=== PATIENT | female | born 1965 | race Caucasian/White ===

== ENCOUNTER → 2017-01-29 | Outpatient (CLI) | payer BC ==
[~2017-01-29] MED LIST: CLOB-65 TOP; LEVO100T7 PO; LEVO112T4 PO; LINA1CAP2 PO; RMCI IV
--- NOTE | 2017-01-29 11:26 | DIAGNOSTIC IMAGING REPORT ---
CHEST 2 VIEWS ROUTINE CLINICAL HISTORY: Fever. Cough. COMPARISON STUDY: Chest radiograph April 17, 2016. FINDINGS: There are several healed right rib fractures. Lung volumes are normal. There is no pneumothorax or pleural effusion. Cardiac size is normal. Mediastinal contours are normal. There is no evidence of pulmonary edema. IMPRESSION: No acute cardiopulmonary findings. Electronically signed by: Ron Tilley M.D. 01/29/2017 11:25 AM Dictated Date/Time: 01/29/2017 11:24 AM
== END | disposition home or self-care (01) ==
LOC: C.RAD1850 11:05
PROVIDERS: ATTEND Family Medicine
DX: R50.9 Fever, unspecified (principal); R05 Cough

== ENCOUNTER 2017-05-29 23:16 | Emergency (ER) | payer BC ==
[~2017-05-29] VITALS: Ht 182.9 cm; Wt 115.8 kg
[~2017-05-29 23:16] MED LIST changes: -LEVO112T4 PO
[2017-05-29 23:23] VITALS: TEMP 36.4; Ht 182.9 cm; Wt 115.8 kg
[2017-05-29 23:47] LABS: BASO % 0.2 %; BASO ABS # 0.01 K/uL (0-0.2); COMPLETE YES; EOS % 2.9 %; HEMATOCRIT 43.1 % (37-47); IG% 0.2 %; LYMPH ABS # 2.36 K/uL (1.2-3.4); MEAN CELL VOLUME 86.5 fL (80-100); MEAN CORPUSCULAR HEMOGLOBIN 28.7 pg (25-34); MEAN CORPUSCULAR HGB CONC 33.2 g/dl (32-36); MEAN PLATELET VOLUME 9.7 fL (7.4-10.4); MONO % 10.2 %; NEUT % 43.5 %; PLATELET COUNT 221 K/uL (130-400); RED BLOOD COUNT 4.98 M/uL (4.2-5.4); WHITE BLOOD COUNT 5.49 K/uL (4.8-10.8)
[2017-05-30 00:02] LABS: POINT OF CARE TROPONIN I < 0.030 ng/ml (0-0.045)
[2017-05-30 00:14] LABS: BUN/CREATININE RATIO 14.5 (10-20); CALCIUM 8.9 mg/dl (8.5-10.1); CKMB/CK RATIO 0.7 (0-3.0); POTASSIUM 3.7 mmol/L (3.5-5.1)
[2017-05-30] MEDS ORDERED: LEVO112T4 PO (00:19)
[2017-05-30 00:46] VITALS: PULSE 64; O2SAT 96
[2017-05-30 01:01] VITALS: BP 167/110
--- NOTE | 2017-05-30 01:57 | EMERGENCY ROOM VISIT NOTE ---
History Report prepared by Tamara: Tata Molina Under the Supervision of: Dr. Liu Gomez M.D. First contact with patient: 23:25 Chief Complaint: CHEST PAIN Stated Complaint: CHEST PAIN, ARM PAIN, TINGLING IN LEFT HAND History of Present Illness The patient is a 51 year old female who presents to the Emergency Room with complaints of intermittent left-sided chest pain that started 3 weeks ago. She rates her discomfort as a 6/10 in severity. The pain radiates into her left shoulder and left arm. The patient states that the chest pain is worse when she puts her left arm down. She states that after putting her left arm down the pain in her chest increases. She describes the pain as tightness or pressure. The patient states that she also experiences tingling in her left hand after she puts her arm down. She states that the left arm pain and numbness only started to be associated with the chest pain over the last 1.5-2 weeks. The pain is unchanged with inspiration. She took Tylenol earlier tonight without any relief. She is also experiencing occasional diaphoresis. Pt denies LOC, headache, fevers, chills, visual changes, neck pain, personal history or family history of aneurysm or pulmonary embolism, breathing difficulties, leg swelling , coagulation abnormalities, prolonged travel, recent surgery or immobilization , nausea, vomiting, abdominal pain, melena, hematochezia, urinary symptoms, weakness, lymphadenopathy, rash, or other complaints. The patient states that she experienced back pain yesterday, but she states that she was standing for a couple hours during the day which is hard for her secondary to her ankylosing spondylosis. The patient's adds that the patient received an infusion of Remicade last week for that at the cancer center. The patient had a treadmill stress test done a few weeks ago but had to stop secondary to hypertension. She had a echocardiogram done after that and the electronics tester told her that it was unremarkable. The patient has seen her PCP, Dr. Chairez, since being evaluated by the electronics tester and she considered starting the patient on medication for hypertension but she was hesitant because the patient' s blood pressures have been within normal limits when she evaluates her. Dr. Mccloud told the patient it would be best to get a second cardiology opinion before she starts her on medication for hypertension. Source of History: patient, spouse/significant other () Onset: 3 weeks ago Position: chest (left) Quality: pressure, other (tightness) Timing: intermittent Modifying Factors (Worsening): other (putting left arm down) Modifying Factors (Relieving): other (None) Associated Symptoms: + diaphoresis (occasionally) Note: left shoulder pain, left arm pain Review of Systems See HPI for pertinent positives and negatives. A total of ten systems were reviewed and were otherwise negative. Past Medical & Surgical Medical Problems: (1) Ankylosing spondylitis (2) HTN (hypertension) Surgical Problems: (1) H/O: hysterectomy Family History Heart disease Hypertension Social History Smoking Status: Never Smoker Marital Status: Housing Status: lives with family Occupation Status: employed Current/Historical Medications Scheduled Infliximab (Remicade), 1 DOSE IV Q8WK Levothyroxine Sodium (Levothyroxine Sodium), 112 MCG PO DAILY Allergies Coded Allergies: Aspirin (Verified Allergy, Intermediate, HIVES, 04/17/16) NSAIDs (Verified Allergy, Intermediate, HIVES, 04/17/16) Sulfa Antibiotics (Verified Allergy, Intermediate, Rash / Headache, ) Sulfasalazine (Verified Allergy, Unknown, ?, 04/17/16) Celecoxib (Verified Adverse Reaction, Mild, HEADACHE, 04/17/16) Physical Exam Vital Signs Date Time Temp Pulse Resp B/P (MAP) Pulse Ox O2 Delivery O2 Flow Rate FiO2 05/30/17 01:01 167/110 05/30/17 00:46 64 16 96 Room Air 05/30/17 00:31 167/115 05/30/17 00:16 67 14 94 Room Air 05/30/17 00:01 156/111 05/29/17 23:48 68 05/29/17 23:46 67 14 163/106 05/29/17 23:44 160/101 05/29/17 23:44 Room Air 05/29/17 23:23 36.4 72 16 193/111 96 Room Air Physical Exam GENERAL: Awake, alert, well-appearing, in no distress HENT: Normocephalic, atraumatic. Oropharynx unremarkable. EYES: Normal conjunctiva. Sclera non-icteric. NECK: Supple. No nuchal rigidity. FROM. No JVD. RESPIRATORY: Clear to auscultation. CARDIAC: Regular rate, normal rhythm. Extremities warm and well perfused. Pulses equal. ABDOMEN: Soft, non-distended. No tenderness to palpation. No rebound or guarding. No masses. RECTAL: Deferred. MUSCULOSKELETAL: Chest examination reveals no tenderness. The back is symmetrical on inspection without obvious abnormality. There is no CVA tenderness to palpation. No joint edema. LOWER EXTREMITIES: Calves are equal size bilaterally and non-tender. No edema. No discoloration. NEURO: Normal sensorium. No sensory or motor deficits noted. SKIN: No rash or jaundice noted. Medical Decision & Procedures ER Provider Diagnostic Interpretation: Radiology results as stated below per my interpretation: Chest x-ray. Findings: A chest x-ray was performed and revealed no pneumothorax, effusion, infiltrate, pulmonary edema, free air under the diaphragm, or wide mediastinum. Laboratory Results 05/29/17 23:38 Red Blood Count 4.98, Mean Corpuscular Volume 86.5, Mean Corpuscular Hemoglobin 28.7, Mean Corpuscular Hemoglobin Concent 33.2, Mean Platelet Volume 9.7, Neutrophils (%) (Auto) 43.5, Lymphocytes (%) (Auto) 43.0, Monocytes (%) (Auto) 10.2, Eosinophils (%) (Auto) 2.9, Basophils (%) (Auto) 0.2, Neutrophils # (Auto ) 2.39, Lymphocytes # (Auto) 2.36, Monocytes # (Auto) 0.56, Eosinophils # (Auto ) 0.16, Basophils # (Auto) 0.01 05/29/17 23:38 Test 05/29/17 23:38 05/29/17 23:42 05/30/17 01:28 White Blood Count 5.49 K/uL (4.8-10.8) Red Blood Count 4.98 M/uL (4.2-5.4) Hemoglobin 14.3 g/dL (12.0-16.0) Hematocrit 43.1 % (37-47) Mean Corpuscular Volume 86.5 fL (80-100) Mean Corpuscular Hemoglobin 28.7 pg (25-34) Mean Corpuscular Hemoglobin Concent 33.2 g/dl (32-36) Platelet Count 221 K/uL (130-400) Mean Platelet Volume 9.7 fL (7.4-10.4) Neutrophils (%) (Auto) 43.5 % Lymphocytes (%) (Auto) 43.0 % Monocytes (%) (Auto) 10.2 % Eosinophils (%) (Auto) 2.9 % Basophils (%) (Auto) 0.2 % Neutrophils # (Auto) 2.39 K/uL (1.4-6.5) Lymphocytes # (Auto) 2.36 K/uL (1.2-3.4) Monocytes # (Auto) 0.56 K/uL (0.11-0.59) Eosinophils # (Auto) 0.16 K/uL (0-0.5) Basophils # (Auto) 0.01 K/uL (0-0.2) RDW Standard Deviation 43.0 fL (36.4-46.3) RDW Coefficient of Variation 13.6 % (11.5-14.5) Immature Granulocyte % (Auto) 0.2 % Immature Granulocyte # (Auto) 0.01 K/uL (0.00-0.02) Anion Gap 5.0 mmol/L (3-11) Est Creatinine Clear Calc Drug Dose 93.7 ml/min Estimated GFR () 75.0 Estimated GFR (Non- 64.7 BUN/Creatinine Ratio 14.5 (10-20) Calcium Level 8.9 mg/dl (8.5-10.1) Total Bilirubin 0.3 mg/dl (0.2-1) Direct Bilirubin 0.1 mg/dl (0-0.2) Aspartate Amino Transf (AST/SGOT) 30 U/L (15-37) Alanine Aminotransferase (ALT/SGPT) 52 U/L (12-78) Alkaline Phosphatase 71 U/L (45-117) Total Creatine Kinase 94 U/L (26-192) Creatine Kinase MB 0.7 ng/ml (0.5-3.6) Creatine Kinase MB Ratio 0.7 (0-3.0) Total Protein 7.1 gm/dl (6.4-8.2) Albumin 3.8 gm/dl (3.4-5.0) Lipase 274 U/L (73-393) Chemistry Specimen Hemolysis Bedside D-Dimer 102 ng/mlFEU (0-450) Bedside Troponin I < 0.030 ng/ml (0-0.045) Laboratory results reviewed by me ECG Indication: chest pain Rate (beats per minute): 71 Rhythm: normal sinus Findings: no acute ischemic change, no ectopy, other (no pericarditis) ED Course 2329: The patient was evaluated in room A11. A complete history and physical exam was performed. 0106: I reevaluated the patient. Discussed results and discharge instructions: she verbalized understanding and agreement. She feels comfortable going home but we are going to repeat a troponin. She refused receiving any medication for pain. The patient is ready for discharge. Medical Decision Medication Reconciliation: I attest that I have personally reviewed the patient' s current medication list Blood pressure screening: Patient was found to have an elevated blood pressure and was referred to their primary doctor for recheck and further treatment. Triage Nursing notes reviewed. The patient's presentation and history were concerning for Chest and arm pain. Etiologies such as musculoskeletal, neurologic, cardiac ischemia, aortic dissection, pulmonary embolism, pneumonia, pneumothorax, infections, gastrointestinal, as well as others were entertained. The patient was evaluated. Clinically she was doing very well. She has had pain for over 3 weeks. The patient has no neurologic deficits. She has strong pulses that are equal. She had a partial stress test by her report that was stopped because of her high blood pressure. She did not have any increasing chest pain by her report. The patient states that she had an echo that was unremarkable. She was just tired of the symptoms and came to emergency department this evening for further evaluation. The patient had an unremarkable CBC, chemistry panel, LFTs and lipase. The patient d-dimer is negative. First troponin was negative. ECG was nonischemic. The patient had equal blood pressures in her upper extremities although she was hypertensive. Without intervention her blood pressure improved but she was still hypertensive. Using shared decision making the patient myself and her felt very comfortable with the results of the initial laboratory, radiographic, and ECG testing. I did suggest a repeat troponin 2 verify the first and the patient and felt very comfortable with this. The patient would prefer to go home at this point and I think this is reasonable as she has had pain for an extended period without any abdomen on these and her blood work or ECG. Repeat troponin was unchanged. The patient will contact her primary physician in the morning and set up additional follow-up testing as she has planned. If she worsens in any way she will come back to the emergency department. The exact etiology of her pains have not obvious although a musculoskeletal source seems to be more likely but further testing will be necessary. By the evaluation outlined above other emergent etiologies such as those listed in the differential, as well as others, were deemed relatively unlikely. The patient was educated about the findings as listed above. All questions were answered and the patient was pleased with the treatment. Return instructions were outlined and the patient was discharged in stable condition. The patient was referred to her PCP tomorrow for follow-up for a recheck of the current condition. Impression Primary Impression: Left sided chest pain Additional Impression: Left arm pain Scribe Attestation The scribe's documentation has been prepared under my direction and personally reviewed by me in its entirety. I confirm that the note above accurately reflects all work, treatment, procedures, and medical decision making performed by me. Departure Information Dispostion Home / Self-Care Referrals Mena Chairez D.O. (PCP) Forms HOME CARE DOCUMENTATION FORM, IMPORTANT VISIT INFORMATION Patient Instructions My [facility] Additional Instructions CHEST PAIN INSTRUCTIONS: Acetaminophen(Tylenol) may be used for fever or pain. Use 1000mg every six hours as needed. Avoid using more than 4000mg in a 24 hour period. Rest and drink plenty of fluids as tolerated. Continue current medications. Avoid strenuous activities and anything that worsens your pain. Resume normal activities once your symptoms resolve. Return to the ER immediately for worsening or persistent chest pain, abdominal pain, vomiting, fevers, chest pains, difficulty breathing, worsening of your condition, or as needed. Follow up with your primary physician tomorrow for a recheck of your current condition. Problem Qualifiers
--- NOTE | 2017-05-30 07:22 | DIAGNOSTIC IMAGING REPORT ---
SINGLE VIEW CHEST CLINICAL HISTORY: Atypical chest pain. FINDINGS: An AP, portable, upright chest radiograph is compared to study dated 01/29/2017 and correlated with chest CT dated 02/24/2015. The examination is degraded by portable technique, large body habitus, and patient rotation. The cardiomediastinal silhouette is unremarkable. The lungs and pleural spaces are clear. No pneumothorax is seen. The skeletal structures are osteopenic. There are healed right-sided rib fractures. IMPRESSION: No active disease in the chest. Electronically signed by: Michael Cruz M.D. 05/30/2017 7:20 AM Dictated Date/Time: 05/30/2017 7:20 AM
== END 2017-05-30 02:00 | disposition home or self-care (01) ==
LOC: C.EDB 23:18 → C.EDA 05-30 02:00
DX: R07.9 Chest pain, unspecified (principal); M79.602 Pain in left arm; R20.0 Anesthesia of skin; M45.9 Ankylosing spondylitis of unspecified sites in spine; I10 Essential (primary) hypertension; Z90.710 Acquired absence of both cervix and uterus; Z82.49 Family history of ischemic heart disease and other diseases of the circulatory system

== ENCOUNTER → 2017-06-05 | Outpatient (CLI) | payer BC ==
[~2017-06-05] MED LIST changes: -CLOB-65 TOP; -LEVO100T7 PO; +LEVO112T4 PO; -LINA1CAP2 PO
--- NOTE | 2017-06-05 22:04 | DIAGNOSTIC IMAGING REPORT ---
RIGHT ANKLE MIN 3 VIEWS ROUTINE CLINICAL HISTORY: Right ankle pain following fall. COMPARISON: None FINDINGS: Note is made of moderate lateral ankle soft tissue swelling. There is an age indeterminate nondisplaced fibular tip fracture. Talar dome is intact. No additional fractures are identified. There is no ankle mortise widening. IMPRESSION: 1. Age indeterminate nondisplaced fibular tip fracture. 2. Moderate lateral ankle soft tissue swelling. Electronically signed by: Ron Tilley M.D. 06/05/2017 10:02 PM Dictated Date/Time: 06/05/2017 10:00 PM
== END | disposition home or self-care (01) ==
LOC: C.RAD 21:16
PROVIDERS: ATTEND Family Medicine
DX: M25.571 Pain in right ankle and joints of right foot (principal)

== ENCOUNTER → 2017-07-03 | Outpatient (CLI) | payer BC ==
--- NOTE | 2017-07-03 13:41 | DIAGNOSTIC IMAGING REPORT ---
RIGHT ANKLE MIN 3 VIEWS CLINICAL HISTORY: Distal fibular fracture COMPARISON: 06/05/2017 DISCUSSION: There is a crescent shaped bony density at the level of the distal fibular tip, consistent with an avulsion. This remain similar in appearance to the prior study. There is no evidence of radiographic union. No tibial fractures are visualized. The ankle mortise appears intact. There is a plantar calcaneal spur. IMPRESSION: Age-indeterminate fibular tip fracture, unchanged in appearance. Electronically signed by: Homero De Leon M.D. 07/03/2017 1:40 PM Dictated Date/Time: 07/03/2017 1:39 PM
== END | disposition home or self-care (01) ==
LOC: C.RDSM 08:12
PROVIDERS: ATTEND Physician Assistant
DX: S82.874A Nondisplaced pilon fracture of right tibia, initial encounter for closed fracture (principal); S82.831A Other fracture of upper and lower end of right fibula, initial encounter for closed fracture; X58.XXXA Exposure to other specified factors, initial encounter

== ENCOUNTER → 2017-08-02 | Outpatient (CLI) | payer BC ==
--- NOTE | 2017-08-02 13:15 | DIAGNOSTIC IMAGING REPORT ---
RIGHT ANKLE MIN 3 VIEWS CLINICAL HISTORY: 51 years-old Female presenting with RIGHT ANKLE FX Right. TECHNIQUE: Frontal, mortise, and lateral views of the right ankle were obtained. COMPARISON: 07/03/2017. FINDINGS: Well-defined sclerotic margins of the transversely oriented fracture at the inferior pole of the lateral malleolus with nonunion. This is consistent with a chronic avulsion injury. No acute fracture. Ankle mortise intact. Bone spur noted at the inferior calcaneus. No other significant degenerative change. IMPRESSION: No acute osseous injury. Chronic avulsion fracture at the inferior pole of the lateral malleolus. Electronically signed by: Alcon Saba M.D. 08/02/2017 1:13 PM Dictated Date/Time: 08/02/2017 1:12 PM
== END | disposition home or self-care (01) ==
LOC: C.RDSM 08:58
PROVIDERS: ATTEND Physician Assistant
DX: S82.61XD Displaced fracture of lateral malleolus of right fibula, subsequent encounter for closed fracture with routine healing (principal); X58.XXXD Exposure to other specified factors, subsequent encounter

== ENCOUNTER → 2017-08-27 | Outpatient (CLI) | payer BC ==
--- NOTE | 2017-08-27 14:42 | MAMMOGRAPHY REPORT ---
BILATERAL DIGITAL DIAGNOSTIC MAMMOGRAM TOMOSYNTHESIS WITH CAD AND TARGETED BILATERAL ULTRASOUND: 08/27 CLINICAL HISTORY: 51-year-old woman presents with 2 areas of focal pain in the left breast, and also reported right sided nipple discharge. The patient reports the pain as a soreness, worse with palpat ion no palpable mass or skin erythema. No left-sided nipple discharge. The right nipple discharge i s clear, spontaneous and one drop at a time which has been ongoing since cessation of after the patient's child was born approximately 10 years ago. TECHNIQUE: Bilateral CC and MLO 2-D and tomosynthesis images were obtained. Current study was also e valuated with a Computer Aided Detection (CAD) system. COMPARISON: Comparison is made to exams dated: 03/23/2008 and 03/23/2008. BREAST COMPOSITION: There are scattered areas of fibroglandular density in both breasts. FINDINGS: 2 square-shaped pain markers overlie the left breast in the upper outer approximate 2:00 a xis, and in the lower inner approximate 7:00 axis. There is a stable benign intramammary lymph node in the upper outer quadrant of the left breast, somewhat near the pain marker. However, there is no evidence of a new suspicious mass, architectural distortion, asymmetry or suspicious microcalcificati ons in the left breast. There is a grouping of approximately 2 to 3 punctate microcalcifications in the upper outer posterior right breast, with associated 4 mm nodular asymmetry, not clearly seen on the prior 2007 mammograms. Further evaluation with ultrasound was performed to assess for a possible mass with calcification. No other suspicious mass, focal area of architectural distortion, asymmetry or other suspicious grou ping or clustered microcalcifications is seen in the right breast. No calcifications are seen in the subareolar breast on the spot magnification views to explain the nipple discharge. Targeted ultrasound was performed in the areas of pain in the left 2:00 breast, 7 cm from the nipple, and the left 7:00 breast, 8 cm from the nipple, pointed out by the patient. Sonographically normal tissue is seen without a discrete solid or cystic mass. Additional scanning was performed in the retroareolar and subareolar/periareolar right breast. There is no evidence of focal duct ectasia or suspicious intraductal mass. Additional scanning performed throughout the right upper outer quadrant demonstrates a lobulated anechoic cyst in the 9:00 axis, 6 cm from the nipple, measuring 6.7 x 2.4 x 4.1 mm, and a round hypoechoic solid versus cystic mass in the 8:30 axis, 6 cm from the nipple, measuring 2.5 x 2.5 x 2.7 mm. This is smaller than the nodular asymmetry with calcification seen mammographically and is thought to be incidentally identified. Nev ertheless it is indeterminate warranting further evaluation with an ultrasound guided core biopsy. IMPRESSION: ACR BI-RADS CATEGORY 4: SUSPICIOUS, TARGETED ULTRASOUND ACR BI-RADS CATEGORY 4: SUSPICIO US 1. There is no suspicious mammographic or targeted sonographic abnormalities in the left breast to e xplain the focal areas of pain pointed out by the patient. Conservative management options of minera l supplements, evening primrose oil, heat and NSAIDs were discussed with the patient. Clinical follo w-up is also recommended. 2. There are 2-3 punctate microcalcifications with associated 4.5 mm nodular asymmetry in the upper outer posterior right breast, without definite sonographic correlate. This was not definitely identi fied on the prior 2007 mammograms and is indeterminate. Definitive characterization with a stereotac tic guided biopsy is recommended. Prior to stereotactic biopsy, formal spot magnification view shoul d also be obtained. 3. Incidentally identified 2.5 mm hypoechoic solid versus cystic mass in the 8:30 right breast, 6 cm from the nipple identified on ultrasound. This is also indeterminate, warranting definitive charact erization with an ultrasound guided core needle biopsy. 4. No suspicious mammographic or sonographic finding to explain the intermittent spontaneous clear r ight nipple discharge. Cytology of the fluid may be useful and continued clinical monitoring is virgilio mmended, although this finding has a lower suspicion given the chronic nature. These results and recommendations were discussed with the patient and her at the time of the exam. She tentatively scheduled the right breast biopsies prior to leaving our department. Approximately 10% of breast cancers are not detected with mammography. A negative mammographic report should not delay biopsy if a clinically suggestive mass is present. Connie Feliz M.D. ay/:08/27/2017 12:17:37 Tool Operator: Christianne Beck, [facility] letter sent: Abnormal 4/5 BI-RADS Code: ACR BI-RADS Category 4: Suspicious Ultrasound BI-RADS: ACR BI-RADS Category 4: Suspici ous
== END | disposition home or self-care (01) ==
LOC: C.MAMM 09:41
PROVIDERS: ATTEND Family Medicine
DX: N64.4 Mastodynia (principal); R92.0 Mammographic microcalcification found on diagnostic imaging of breast; N63 Unspecified lump in breast

== ENCOUNTER → 2017-09-17 | Outpatient (CLI) | payer BC ==
--- NOTE | 2017-09-17 10:43 | Discharge Instructions ---
Discharge Instructions Procedure Procedure Date: Sep 17, 2017. Reason for visit: Right Calcs, Right Mass. Discharge Discharge Date: Sep 17, 2017. Discharge Diagnosis: post right breast stereotactic guided biopsy and ultrasound guided core biopsy Instructions Activity Recommendations: Additional Limitations (see below) Return to School/Work: no limitations Recommended Home Diet: No Limitations Provider Instructions: ACTIVITY RECOMMENDATIONS: * No lifting, pushing, pulling or exercising the affected side for three days. RETURN TO SCHOOL/WORK: * You may return to work/school after the procedure, but do not perform any strenuous activities for 24 to 48 hours. MEDICATIONS: * Tylenol (two 325 mg) every four to six hours if needed for mild pain (if not allergic to Tylenol). DIET: * Resume previous diet. SPECIAL CARE INSTRUCTIONS: * Keep biopsy site dry for 24 hours. May shower after 24 hours, but do not soak (bathe) incision. * May remove Tegaderm (plastic patch) tomorrow AFTER showering. * Leave the steri-strips on for one week. Allow the steri-strips to fall off by themselves. If not off after one week, you may remove them. You may place a Bandaid crosswise over the strips, if desired. * Apply ice 10 minutes on and 10 minutes off as needed. * Wear a bra at bedtime to sleep more comfortably for 2-3 days. * Your referring physician should have the results after approximately 5 to 7 business days. * Call for unusual bleeding, fever, drainage, etc or if you have any questions call [phone] during normal business hours or after hours call Dr Feliz, . FOLLOW UP VISIT: Follow-up with Referring Physician as scheduled. Allergies Coded Allergies: Aspirin (Verified Allergy, Intermediate, HIVES, 04/17/16) NSAIDs (Verified Allergy, Intermediate, HIVES, 04/17/16) Sulfa Antibiotics (Verified Allergy, Intermediate, Rash / Headache, ) Sulfasalazine (Verified Allergy, Unknown, ?, 04/17/16) Celecoxib (Verified Adverse Reaction, Mild, HEADACHE, 04/17/16) Hillary Slaas Recommendations: Call your doctor if: * Temperature above 101 degrees * Pain not relieved by pain medicine ordered * There is increased drainage or redness from any incision * You have any unanswered questions or concerns. Your Doctors Instructions noted above were prepared by provider Connie Feliz. Patient Signature Section: Patient Instructions Signature Page Lesley Suárez Patient (or Guardian) Signature/Date: I have read and understand the instructions given to me by my caregivers. Caregiver/RN/Doctor Signature/Date: The above-named patient and/or guardian has received patient instructions on this date. + Original Patient Signature Page (only) stays with chart. Please make copy for patient.
--- NOTE | 2017-09-17 15:21 | MAMMOGRAPHY REPORT ---
ULTRASOUND GUIDED BIOPSY RIGHT BREAST: 09/17/2017 CLINICAL HISTORY: 51-year-old woman presents for ultrasound-guided core biopsy of an indeterminate so lid versus cystic 2.7 mm mass in the 8:30 right breast, 6 in meters from the nipple. A stereotactic biopsy was performed during the same appointment for a small grouping of punctate microcalcifications in the upper outer posterior right breast. COMPARISON: Comparison is made to exams dated: 08/27/2017 ultrasound, 08/27/2017 mammogram - [facility], and 03/23/2008. PATIENT CONSENT: The procedure, risks and benefits were discussed with the patient and informed conse nt was obtained both verbally and in writing. Specific risks to this procedure include: bleeding, in fection, puncture of adjacent structure, nontarget biopsy, sampling error, pain, metal allergy and me dication reaction. PROCEDURE DESCRIPTION: A time out was performed and the right breast was agreed as the site of biopsy . The skin was prepped and draped in the usual sterile fashion. The solid versus cystic 2.7 mm mass i n the 8:30 right breast was chosen as the target for biopsy. Subcutaneous and intraparenchymal 1% buf fered lidocaine, with and without epinephrine, was administered as local anesthesia. A skin incision was made. Through the incision, 4 samples were taken with a 14 gauge Achieve biopsy device. The mas s decreased in size after each sample. A ribbon shaped metallic marker was placed at the biopsy site . Hemostasis was achieved after manual compression. The patient tolerated the procedure well and ther e was no immediate complication. The samples were sent to the pathology department in an appropriate ly labeled container. Postprocedure right CC and ML views were obtained. A new dumbbell-shaped metallic biopsy marker and no significant hematoma is seen in the upper outer posterior right breast denoting the site of stereo tactic biopsy. A ribbon-shaped biopsy marker clip and no significant hematoma is seen in the 8:30 mi ddle to anterior right breast at the site of the biopsied indeterminate solid versus cystic 2.7 mm ma ss. IMPRESSION: ULTRASOUND GUIDED BIOPSY 1. Status post ultrasound-guided core biopsy of an indeterminate 2.7 mm hypoechoic mass in the 8:30 right breast, with ribbon shaped biopsy marker placed at the site. 2. A stereotactic biopsy was performed in the upper outer posterior right breast during the same klaus ointment and please refer to a separate report for full detail. 3. Clinical follow-up is again recommended for the right sided nipple discharge without any definite imaging abnormality to explain the symptom. Cytology of the fluid may be useful. 4. Clinical follow-up is also recommended for left-sided breast pain. The patient will receive notification of the biopsy results from her referring physician. Connie Feliz M.D. ay/:09/17/2017 12:02:29 E Commerce Specialist: Priyank DE)(Marissa), [facility] [address]
--- NOTE | 2017-09-17 15:21 | MAMMOGRAPHY REPORT ---
STEREOTACTIC GUIDED BIOPSY RIGHT BREAST: 09/17/2017 CLINICAL HISTORY: Indeterminate loose grouping of punctate microcalcifications in the upper outer pos terior right breast. Patient presents for stereotactic biopsy. COMPARISON: Comparison is made to exams dated: 08/27/2017 ultrasound, 08/27/2017 mammogram - [facility], 03/23/2008, and 03/23/2008. PATIENT CONSENT: After explaining the risks, benefits and alternatives of the procedure to the patien t, informed consent was obtained both verbally and in writing. Specific risks include: Bleeding, inf ection, puncture of adjacent structure, pain, nontarget biopsy, sampling error, metal allergy and med ication reaction. PROCEDURE DESCRIPTION: Prior to the stereotactic biopsy, formal spot magnification views were obtaine d in the right upper outer quadrant. There is a loose grouping of punctate and amorphous microcalcif ications measuring 4 mm, as seen on the full field diagnostic mammograms obtained on 08/27/2017. No associated architectural distortion or definite mass. These microcalcifications are indeterminate wa rranting further evaluation with a stereotactic biopsy. A time-out was performed and the right breast was confirmed as the site of biopsy. The patient was pl aced prone on the stereotactic biopsy table and the breast was placed in lateralmedial compression. A house manager image was obtained that demonstrated the clustered microcalcifications in question. They are amenable to sterotactic biopsy. Then +15 and -15 stereo pair images were obtained. The calcificati ons were targeted utilizing the coordinates obtained by the computer. The skin was prepped with Beta dine. 1% Lidocaine with and without epinipherine was administered as local anesthesia. A small skin i ncision was made. Through the incision, the needle was inserted to the depth determined by the compu ter. 6 samples were obtained using a [employer] 9-gauge vacuum-assisted biopsy device. The specimen radiograph demonstrated a few union contract representative microcalcifications, therefore, a metallic marker was pl aced at the biopsy site. There was no immediate complication. Hemostasis was achieved after several m inutes of manual compression. The samples were sent to pathology in 1 appropriately labeled containe r. The patient tolerated the procedure well and after Steri-Strips were placed over the incision, roger laughlin was taken to the ultrasound room for ultrasound-guided core biopsy in the 8:30 right breast. Bailee laughlin refer to a separate report for full detail. Postprocedure CC and ML views of the right breast were obtained. A new dumbbell shaped metallic bio psy marker and no significant hematoma is identified in the upper outer posterior right breast, at th e site of the biopsied grouped punctate microcalcifications. A ribbon-shaped biopsy marker clip is s een at the site of the ultrasound-guided core biopsy in the 8:30 middle to anterior right breast perf ormed at the same time. IMPRESSION: STEREOTACTIC GUIDED BIOPSY 1. Status post stereotactic guided biopsy of a small grouping of punctate microcalcifications in the upper outer posterior right breast, with dumbbell-shaped biopsy marker clip placed at the site. 2. An ultrasound guided core biopsy was performed in the 8:30 right breast during the same appointme nt for an indeterminate solid versus cystic mass. Please refer to a separate report for full detail. The patient will receive notification of the biopsy results from her referring physician. Connie Feliz M.D. ay/:09/17/2017 11:59:49 Grain Packer: Priyank DE)(Marissa), [facility]
--- NOTE | 2017-09-17 15:21 | MAMMOGRAPHY REPORT ---
UNILATERAL RIGHT DIGITAL DIAGNOSTIC MAMMOGRAM: 09/17/2017 CLINICAL HISTORY: Status post right breast stereotactic biopsy of microcalcifications in the right up per outer quadrant, and ultrasound-guided core biopsy of a tiny indeterminate solid versus cystic mas s in the 8:30 right breast. Please refer to the reports from right breast stereotactic biopsy and right breast ultrasound guided core biopsy performed at the same time for full detail. IMPRESSION: POST PROCEDURE IMAGING FOR MARKER PLACEMENT Please refer to the reports from right breast stereotactic biopsy and right breast ultrasound guided core biopsy performed at the same time for full detail. Approximately 10% of breast cancers are not detected with mammography. A negative mammographic report should not delay biopsy if a clinically suggestive mass is present. Connie Feliz M.D. ay/:09/17/2017 11:56:12 Police District Switchboard Operator: Christianne YBARRA(Taylor)(M), [facility] BI-RADS Code: Post Procedure Imaging For Marker Placement
== END | disposition home or self-care (01) ==
LOC: C.MAMM 09:45
PROVIDERS: ATTEND Family Medicine
DX: R92.0 Mammographic microcalcification found on diagnostic imaging of breast (principal); N63.10 Unspecified lump in the right breast, unspecified quadrant

== ENCOUNTER 2021-02-12 15:43 | Inpatient (IN) ==
[2021-02-12] MEDS ORDERED: ONDANSETRON INJ 2 MG/ML 2 ML VIAL IV STA (16:03)
[2021-02-12] MEDS ORDERED: SODIUM CHLORIDE 0.9% 1000ML 1,000 ML IV ONE (16:03)
[2021-02-12 16:39] LABS: Eosinophils % (auto) 4.7 %; Hematocrit (blood only) 44.6 % (37-47); Hemoglobin 15.6 g/dL (12.0-16.0); Immature Granulocytes # (auto) 0.01 K/uL (0.00-0.02); Immature Granulocytes % (auto) 0.2 %; Lymphocytes % (auto) 12.4 %; Mean Corpuscular Hemoglobin 29.2 pg (25-34); Mean Corpuscular Volume 83.5 fL (80-100); Mean Platelet Volume 10.3 fL (7.4-10.4); Monocytes # (auto) 0.45 K/uL (0.11-0.59); Neutrophils # (auto) 4.88 K/uL (1.4-6.5); Neutrophils % (auto) 75.7 %; Platelet Count 174 K/uL (130-400); RDW Coefficient of Variation 13.8 % (11.5-14.5); RDW Standard Deviation 41.8 fL (36.4-46.3); Red Blood Count 5.34 M/uL (4.2-5.4); White Blood Count 6.44 K/uL (4.8-10.8)
--- NOTE | 2021-02-12 16:41 | Emergency Department Note ---
History of Present Illness General Chief Complaint: Vomiting Stated Complaint: NAUSEA, VOMITING Time Seen by Provider: 02/12/21 16:02 Source: patient Mode of arrival: ambulatory Limitations: no limitations History of Present Illness Maximum Pain Intensity: 6 This is a 55-year-old female who presents to the ED with a chief complaint of nausea, vomiting and diarrhea. The patient states that she has had the symptoms for about a week. She was here once previously and was discharged on Zofran. She tried some Zofran today which did not help much. The patient states that she has some mild epigastric abdominal discomfort. She states that she last vomited about 345 this afternoon. Her last episode of diarrhea this morning. She states that she has an endoscopy and colonoscopy scheduled for this Saturday. She has had some previous issues similar to this back in November but she does not feel that they are the same. She has no additional complaints at this time. History of hysterectomy. Related Data Last Menstrual Period: hysterectomy Patient Confirmed : No Home Medications Medication Instructions Recorded Confirmed Type amlodipine 5 mg tablet 5 mg PO HS 07/27/20 02/12/21 History hydrochlorothiazide 25 mg tablet 12.5 mg PO QAM 07/27/20 02/12/21 History levothyroxine 137 mcg capsule 137 mcg PO DAILYBB 07/27/20 02/12/21 History metoprolol succinate 25 mg 12.5 mg PO QAM tab 08/18/20 02/12/21 History tablet,extended release 24 hr ergocalciferol (vitamin D2) 1,250 mcg PO MONTHLY 01/31/21 02/12/21 History infliximab [Remicade] See Rx Instructions .ROUTE .COMPLEX 01/31/21 02/12/21 History insulin aspart U-100 [Novolog See Rx Instructions .ROUTE .COMPLEX 01/31/21 02/12/21 History U-100 Insulin aspart] losartan 100 mg PO QAM 01/31/21 02/12/21 History dicyclomine 20 mg PO QID PRN #20 tab 02/03/21 02/12/21 Rx omeprazole 10 mg PO QAM 02/03/21 02/12/21 History ondansetron 4 mg PO Q6H PRN #20 tab 02/03/21 02/12/21 Rx buspirone 5 mg PO TID 02/12/21 02/12/21 History venlafaxine 37.5 mg PO DAILY 02/12/21 02/12/21 History Allergies Allergy/AdvReac Type Severity Reaction Status Date / Time aspirin Allergy Intermediate Hives Verified 02/12/21 16:57 NSAIDS (Non-Steroidal Allergy Intermediate Hives Verified 02/12/21 16:57 Anti-Inflamma Sulfa (Sulfonamide Allergy Intermediate Rash / Verified 02/12/21 16:57 Antibiotics) Headache sulfasalazine Allergy Unknown ? 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 Feels Safe at Home: Yes Review of Systems A total of 10 systems reviewed and were otherwise negative Physical Exam Vital Signs: Vital Signs - 24 hr 02/12/21 15:49 02/12/21 16:25 02/12/21 16:30 Temperature 37.1 C Temperature Source Skin Pulse Rate 84 74 69 Pulse Rate [Apical ] 73 Pulse Rate from Sp O2 Sensor 69 Respiratory Rate 20 20 16 Respiratory Effort / Characteristics Non-Labored Sponta neous Non-Labored Sponta neous Respiratory Depth Normal Normal Respiratory Patter n Regular Regular Blood Pressure 142/92 H 125/90 Blood Pressure [Ri ght Arm] 141/92 H Blood Pressure Taylor n 108 101 Blood Pressure Taylor n [Right Arm] 108 Pulse Oximetry 98 95 96 Oxygen Delivery Me thod Room Air Room Air Sepsis Recent Feve r Within 48 Hours No Sepsis New/Unexpla ined Change in Men michelle Status N/A Sepsis Action Take n by Nursing No Action Required 02/12/21 16:32 02/12/21 17:00 02/12/21 17:01 Temperature Temperature Source Pulse Rate 70 69 67 Pulse Rate [Apical ] Pulse Rate from Sp O2 Sensor 69 68 67 Respiratory Rate 15 17 16 Respiratory Effort / Characteristics Respiratory Depth Respiratory Patter n Blood Pressure 123/80 Blood Pressure [Ri ght Arm] Blood Pressure Taylor n 94 Blood Pressure Taylor n [Right Arm] Pulse Oximetry 96 97 97 Oxygen Delivery Me thod Sepsis Recent Feve r Within 48 Hours Sepsis New/Unexpla ined Change in Men michelle Status Sepsis Action Take n by Nursing 02/12/21 17:30 02/12/21 17:31 02/12/21 18:00 Temperature Temperature Source Pulse Rate 71 68 68 Pulse Rate [Apical ] Pulse Rate from Sp O2 Sensor 70 68 68 Respiratory Rate 15 14 18 Respiratory Effort / Characteristics Respiratory Depth Respiratory Patter n Blood Pressure 132/96 128/87 Blood Pressure [Ri ght Arm] Blood Pressure Taylor n 108 100 Blood Pressure Taylor n [Right Arm] Pulse Oximetry 97 96 97 Oxygen Delivery Me thod Sepsis Recent Feve r Within 48 Hours Sepsis New/Unexpla ined Change in Men michelle Status Sepsis Action Take n by Nursing 02/12/21 18:58 02/12/21 18:59 02/12/21 19:00 Temperature Temperature Source Pulse Rate 74 76 73 Pulse Rate [Apical ] Pulse Rate from Sp O2 Sensor 76 74 Respiratory Rate 21 17 13 Respiratory Effort / Characteristics Respiratory Depth Respiratory Patter n Blood Pressure 149/84 H Blood Pressure [Ri ght Arm] Blood Pressure Taylor n 105 Blood Pressure Taylor n [Right Arm] Pulse Oximetry 96 96 Oxygen Delivery Me thod Sepsis Recent Feve r Within 48 Hours Sepsis New/Unexpla ined Change in Men michelle Status Sepsis Action Take n by Nursing 02/12/21 19:01 Temperature Temperature Source Pulse Rate 75 Pulse Rate [Apical ] Pulse Rate from Sp O2 Sensor 75 Respiratory Rate 12 Respiratory Effort / Characteristics Respiratory Depth Respiratory Patter n Blood Pressure 141/71 H Blood Pressure [Ri ght Arm] Blood Pressure Taylor n 94 Blood Pressure Taylor n [Right Arm] Pulse Oximetry 96 Oxygen Delivery Me thod Sepsis Recent Feve r Within 48 Hours Sepsis New/Unexpla ined Change in Men michelle Status Sepsis Action Take n by Nursing Physical Exam: CONSTITUTIONAL/VITAL SIGNS: Reviewed / noted above. GENERAL: Non-toxic in appearance. INTEGUMENTARY: Warm, dry, and [place]. HEAD: Normocephalic. EYES: without scleral icterus or trauma. ENT/OROPHARYNX: clear and moist. LYMPHADENOPATHY/NECK: Is supple without lymphadenopathy or meningismus. RESPIRATORY: Lungs clear and equal. CARDIOVASCULAR: Regular rate and rhythm. GI/ABDOMEN: Soft and mildly tender diffusely. No organomegaly or pulsatile mass. No rebound or guarding. Normal bowel sounds. EXTREMITIES: Warm and well perfused. BACK: No CVA tenderness. NEUROLOGICAL: Intact without focal deficits. PSYCHIATRIC: normal affect. MUSCULOSKELETAL: Normally developed with good muscle tone. TRIAGE NURSING DOCUMENTATION REVIEWED. Course Administered Medications Discontinued Medications Sodium Chloride (Nss 1000ml) 1,000 mls @ 999 mls/hr IV .Q1H1M ONE Stop: 02/12/21 17:03 Last Infusion: 02/12/21 17:30 Dose: 0 mls/hr Documented by: [id number] Admin: 02/12/21 16:23 Dose: 999 mls/hr Documented by: [id number] Prochlorperazine (Compazine) 2 mls @ 1 mls/min IV ONE ONE Stop: 02/12/21 18:05 Last Admin: 02/12/21 18:09 Dose: 1 mls/min Documented by: [id number] Lorazepam (Ativan) 1 mg in 2 mls @ 2 mls/min IV NOW STA Stop: 02/12/21 18:43 Last Admin: 02/12/21 19:08 Dose: 2 mls/min Documented by: [id number] Ioversol (Ioversol 100ml) 95 ml IV ONCE ONE Stop: 02/12/21 18:51 Last Admin: 02/12/21 18:51 Dose: 95 ml Documented by: [id number] Ondansetron HCl (Ondansetron Inj 2 Mg/Ml 2 Ml Vial) 4 mg IV NOW STA Stop: 02/12/21 16:04 Last Admin: 02/12/21 16:23 Dose: 4 mg Documented by: [id number] Medical Decision Making Differential Diagnosis Differential considered: pancreatitis, hepatitis, acute cholecystitis, AAA, UTI, pyelonephritis, kidney stones, appendicitis, diverticulitis, shingles, bowel obstruction, mesenteric ischemia, intussusception,hernia,. Medical Records Attestation: I reviewed the patient's medical records. Home Medications Current Medication List: was personally reviewed by me Laboratory Data Attestation: I reviewed the patient's lab results. Result diagrams: 02/12/21 16:20 02/12/21 16:20 Lab Results 03/14/21 03/14/21 Range/Units 16:20 16:20 WBC 6.44 (4.8-10.8) K/uL RBC 5.34 (4.2-5.4) M/uL Hgb 15.6 (12.0-16.0) g/dL Hct 44.6 (37-47) % MCV 83.5 (80-100) fL MCH 29.2 (25-34) pg MCHC 35.0 (32-36) g/dL RDW Std Deviation 41.8 (36.4-46.3) fL RDW Coeff of Mehul 13.8 (11.5-14.5) % Plt Count 174 (130-400) K/uL MPV 10.3 (7.4-10.4) fL Immature Gran % (Auto) 0.2 % Neut % (Auto) 75.7 % Lymph % (Auto) 12.4 % Clarke % (Auto) 7.0 % Eos % (Auto) 4.7 % Baso % (Auto) 0.0 % Neut # (Auto) 4.88 (1.4-6.5) K/uL Lymph # (Auto) 0.80 L (1.2-3.4) K/uL Clarke # (Auto) 0.45 (0.11-0.59) K/uL Eos # (Auto) 0.30 (0-0.5) K/uL Baso # (Auto) 0.00 (0-0.2) K/uL Immature Gran # (Auto) 0.01 (0.00-0.02) K/uL Sodium 141 (136-145) mmol/L Potassium 3.7 (3.5-5.1) mmol/L Chloride 106 (98-107) mmol/L Carbon Dioxide 28 (21-32) mmol/L Anion Gap 7.0 (3-11) BUN 15 (7-18) mg/dl Creatinine 0.99 (0.6-1.2) mg/dl Est Cr Clr Drug Dosing 86.0 ml/min Est GFR ( Amer) 73.8 Est GFR (Non-Af Amer) 63.7 BUN/Creatinine Ratio 15.3 (10-20) Glucose 103 H (70-99) mg/dl Calcium 9.7 (8.5-10.1) mg/dl Total Bilirubin 0.7 (0.2-1) mg/dl AST 17 (15-37) U/L ALT 39 (12-78) U/L Alkaline Phosphatase 75 (45-117) U/L Total Protein 7.0 (6.4-8.2) gm/dl Albumin 4.0 (3.4-5.0) gm/dl Globulin 3.0 (2.5-4.0) gm/dl Albumin/Globulin Ratio 1.3 (0.9-2) Triglycerides 94 (0-150) mg/dl Cholesterol 173 (0-200) mg/dl LDL Cholesterol, Calc 111 mg/dl VLDL Cholesterol, Calc 19 mg/dl HDL Cholesterol 43 mg/dl Cholesterol/HDL Ratio 4 Lipase 5767 H (73-393) U/L Imaging Data Radiologist's Impression: CT scan of the abdomen pelvis: IMPRESSION: 1. There are no acute infectious or inflammatory findings in the abdomen or pelvis. Specifically, there is no CT evidence of acute pancreatitis. Clinical laboratory correlation will be required. 2. Splenomegaly. 3. Additional findings as above. MDM Narrative Patient presents with nausea, vomiting and diarrhea. This seems to be ongoing intermittently for the past week. She has seen her PCP and has been seen in the ED for the same. She has been prescribed Zofran as well as an anxiety medication. Details listed above. Her exam was benign. Abdomen is soft and mildly tender diffusely. The patient CBC and chemistry panel was unremarkable with exception of a lipase that was elevated in the 5000 range. Last time she was here earlier this week was only 84. The patient was treated with IV fluids, IV Zofran and IV Compazine. She was told the results of the test. A CT scan did not show pancreatitis. I did speak with the hospitalist to see the patient for further inpatient evaluation and care. She was given an dose of IV Ativan for some anxiety. Impression & Plan Acute pancreatitis Discharge Plan Visit Data Chief Complaint: Vomiting Stated Complaint: NAUSEA, VOMITING ED Provider: Morteza Gu Discharge Problem: Acute pancreatitis Patient Disposition: Being Evaluated by Hospitalist Forms Stand Alone Forms: My [facility], Virtual Emergency Department, Important Visit Information Prescriptions Prescriptions: No Action levothyroxine 137 mcg capsule 137 mcg PO DAILYBB RF: 0 amlodipine 5 mg tablet 5 mg PO HS RF: 0 hydrochlorothiazide 25 mg tablet 12.5 mg PO QAM RF: 0 metoprolol succinate 25 mg tablet extended release 24 hr 12.5 mg PO QAM RF: 0 losartan 50 mg tablet 100 mg PO QAM RF: 0 insulin aspart U-100 [Novolog U-100 Insulin aspart] 100 unit/mL solution See Rx Instructions .ROUTE .COMPLEX RF: 0 Remicade 100 mg Recon Soln See Rx Instructions .ROUTE .COMPLEX RF: 0 ergocalciferol (vitamin D2) 1,250 mcg (50,000 unit) capsule 1,250 mcg PO MONTHLY RF: 0 buspirone 5 mg tablet 5 mg PO TID RF: 0 venlafaxine 37.5 mg capsule,extended release 24hr 37.5 mg PO DAILY RF: 0 omeprazole 10 mg capsule,delayed release(DR/EC) 10 mg PO QAM RF: 0 ondansetron 4 mg tablet,disintegrating 4 mg PO Q6H PRN (Reason: nausea and vomiting) Qty: 20 RF: 0 dicyclomine 20 mg tablet 20 mg PO QID PRN (Reason: abdominal distention) Qty: 20 RF: 0 Referrals Referrals: Mena Chairez DO [Primary Care Provider] - Discharge Problem: Acute pancreatitis Qualifiers: Pancreatitis type: unspecified pancreatitis type Acute pancreatitis complication: unspecified Qualified Code(s): K85.90 - Acute pancreatitis without necrosis or infection, unspecified
[2021-02-12 16:55] LABS: BUN Creatinine Ratio 15.3 (10-20); Calcium 9.7 mg/dl (8.5-10.1); Est GFR (African American) 73.8; Est GFR (Non-African American) 63.7; Potassium 3.7 mmol/L (3.5-5.1)
[2021-02-12 16:58] LABS: Albumin Globulin Ratio 1.3 (0.9-2); Bilirubin,Total 0.7 mg/dl (0.2-1)
[2021-02-12] MEDS ORDERED: PROCHLORPERAZINE 2 ML IV ONE (18:04)
[2021-02-12] MEDS ORDERED: LORazepam 1 MG/2 ML VIAL IV STA (18:42)
[2021-02-12] MEDS ORDERED: OPTIRAY 320 100ml IV ONE (18:50)
--- NOTE | 2021-02-12 19:08 | CT Scan Report ---
CT SCAN OF THE ABDOMEN AND PELVIS WITH IV CONTRAST CLINICAL HISTORY: Upper abdominal pain. Vomiting. Elevated lipase. COMPARISON STUDY: Abdominal CT dated 02/03/2021. TECHNIQUE: Following the IV administration of 95 cc of Optiray 320, CT scan of the abdomen and pelvi s is performed from the lung bases to the proximal femora. Images are reviewed in the axial, sagittal , and coronal planes. IV contrast was administered without complication. A dose lowering technique wa s utilized adhering to the principles of ALARA. CT DOSE: 890.96 mGy.cm FINDINGS: Lung bases: The heart is normal in size and without pericardial effusion. The lung bases are clear. Liver: The contrast-enhanced liver is normal in size, contour, and attenuation. There is no intrahepa tic biliary ductal dilatation. The hepatic veins and portal veins are patent. Gallbladder: Unremarkable. Spleen: The spleen is enlarged measuring 15.8 cm in length. Pancreas: The pancreas is normal in appearance and enhances homogeneously. No peripancreatic strandin g or fluid is identified. Adrenal glands: Unremarkable. Kidneys: A horseshoe kidney is incidentally noted. The contrast enhanced renal moieties are normal in size and without hydronephrosis. The kidneys enhance symmetrically. Abdominal vasculature: The abdominal aorta is normal in course and caliber noting scattered foci of a therosclerotic calcification. Bowel: There is no bowel obstruction. The appendix is not identified and reported surgically absent. Peritoneum: There is no intraperitoneal free air or abdominal ascites. There is a small fat-containin g umbilical hernia. Lymphadenopathy: None. Pelvic viscera: The bladder is decompressed and not well evaluated. The uterus is surgically absent. No adnexal lesion is seen. Skeletal structures: No lytic or blastic lesions are seen. IMPRESSION: 1. There are no acute infectious or inflammatory findings in the abdomen or pelvis. Specifically, the re is no CT evidence of acute pancreatitis. Clinical laboratory correlation will be required. 2. Splenomegaly. 3. Additional findings as above. ACT 112: Negative or not required by law. Electronically signed by: Michael Cruz M.D. 02/12/2021 7:07 PM
--- NOTE | 2021-02-12 20:53 | History & Physical Report ---
Date of Service February 12, 2021 Assessment & Plan (1) Acute pancreatitis: Lesley Suárez is a 55-year-old female with past medical history significant for hypertension, diabetes, anxiety; presented to the ER today for concerns for persistent nausea and vomiting. Acute pancreatitis: -Uncertain etiology of potential pancreatitis picture, given paucity of additional findings; questionable obstructive versus inflammatory etiology causing elevated lipase and symptoms -Lipase on admission 5767 -CT abdomen pelvis demonstrating no acute infectious/inflammatory findings within the abdomen pelvis, no evidence of peripancreatic stranding or fluid -GI consulted: Uncertain of potential role for ERCP versus MRCP given patient's persistent nausea and upcoming outpatient procedures, appreciate recommendations -Maintain n.p.o. with sips and medications at this time -Start NSS at 200 mL/h, will cap hydration at 3L rehydration at this time to prevent fluid overload Diabetes: -Previous A1c December 2020 15 -According to [facility] records patient has not been requiring insulin use over the last month -BS ACHS, will hold on initiation of insulin therapy at this time in absence of hyperglycemia Hypothyroidism: -Continue home Synthroid at this time Hypertension: -Continue home regimen without change at this time -Continue to monitor Diet: NPO with sips and chips and medications CODE STATUS: Full code DVT PPx: Deferred at this time, encourage ambulation (2) Diabetes: (3) Hypothyroidism: (4) HTN (hypertension): History of Present Illness Chief Complaint: Persistent nausea Primary Care Provider: Mena Chairez DO Lesley Suárez is a 55-year-old female with past medical history significant for hypertension, diabetes, anxiety; presented to the ER today for concerns for persistent nausea and vomiting. States that the symptoms started approximately 2 weeks ago, during which time she was seen and evaluated in the emergency department subsequently discharged on Zofran. Over the last week she has been utilizing Zofran consistently with minimal to no relief of nausea. States that she gets nauseous with consumption of all foods, and also with prolonged periods of time without eating. Since yesterday she has had multiple rounds of vomiting, that she does not think were bloody or bilious. In review of her records through [facility] [address], patient was scheduled to have EGD, colonoscopy on this upcoming Saturday 02/[address] Sy, this was intended to evaluate a catching sensation that she has previously had when consuming food. PCP trialed omeprazole for resolution of questionably GERD related symptoms this was started on 02/01, and as of yet have not made improvement in patient symptoms. Patient states that the abdominal pain has been consistent and central/upper abdomen over the last 2+ weeks, without radiation or alleviating medicines; is worsened by consumption of food of any sort. Allergies Allergy/AdvReac Type Severity Reaction Status Date / Time aspirin Allergy Intermediate Hives Verified 02/14/21 14:12 NSAIDS (Non-Steroidal Allergy Intermediate Hives Verified 02/14/21 14:12 Anti-Inflamma Sulfa (Sulfonamide Allergy Intermediate Rash / Verified 02/14/21 14:12 Antibiotics) Headache sulfasalazine Allergy Unknown ? Verified 02/14/21 14:12 celecoxib AdvReac Mild Headache Verified 02/14/21 14:12 Home Medications Medication Instructions Recorded Confirmed Type amlodipine 5 mg tablet 5 mg PO HS 07/27/20 02/12/21 History levothyroxine 137 mcg capsule 137 mcg PO DAILYBB 07/27/20 02/12/21 History metoprolol succinate 25 mg 12.5 mg PO QAM tab 08/18/20 02/12/21 History tablet,extended release 24 hr Remicade See Rx Instructions .ROUTE .COMPLEX 01/31/21 02/12/21 History ergocalciferol (vitamin D2) 1,250 mcg PO MONTHLY 01/31/21 02/12/21 History insulin aspart U-100 [Novolog See Rx Instructions .ROUTE .COMPLEX 01/31/21 02/12/21 History U-100 Insulin aspart] losartan 100 mg PO QAM 01/31/21 02/12/21 History dicyclomine 20 mg PO QID PRN #20 tab 02/03/21 02/12/21 Rx omeprazole 10 mg PO QAM 02/03/21 02/12/21 History ondansetron 4 mg PO Q6H PRN #20 tab 02/03/21 02/12/21 Rx buspirone 5 mg PO TID 02/12/21 02/12/21 History venlafaxine 37.5 mg PO DAILY 02/12/21 02/12/21 History Past Med/Surg History Medical History Ankylosing spondylitis Diabetes Horseshoe kidney Hypertension Hypothyroidism Surgical History H/O: hysterectomy History of appendectomy History of colonoscopy History of esophagogastroduodenoscopy (EGD) Social History Smoking Status: Never smoker Second Hand Exposure: No; Hx Alcohol Use: No Hx Substance Use: No Preferred Language: Bel[place]an Communication Ability: Effective Beliefs That Will Affect Care: None marital status: Current Living Situation: Spouse 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 Feels Safe at Home: Yes Assistive Devices: None Review of Systems Review of Systems: All systems reviewed & are unremarkable except as noted in HPI & below Physical Exam Constitutional: well developed and well nourished Eyes: PERRL, conjunctivae normal, anicteric sclerae Respiratory: normal respiratory effort, lungs clear to auscultation Auscultation: no crackles, no rales, no rhonchi and no wheezes Cardiovascular: Rate/Rhythm: regular rate and regular rhythm Heart Sounds: no gallop, no murmur and no cardiac rub Gastrointestinal (Abdomen): Inspection/Auscultation: abdomen normal to inspection; abdomen not distended Percussion/Palpation: + abdomen tender (epigastric) and abdomen soft; no guarding, abdomen not rigid, no hepatosplenomegaly and no fluid wave Skin: no rashes, warm and dry Psychiatric: Orientation: alert and oriented x 3 Lymphatic: no cervical or axillary lymphadenopathy Results & Data Results & Data ([facility]) Vital Signs (Past 12 Hours) Vital Signs Temp Pulse Pulse Resp BP BP Pulse Ox 02/12/21 20:32 69 21 97 02/12/21 20:30 63 15 98 02/12/21 20:03 62 15 95 02/12/21 20:02 60 15 95 02/12/21 20:00 64 15 94 02/12/21 19:32 74 13 02/12/21 19:31 73 17 135/77 96 02/12/21 19:30 75 12 98 02/12/21 19:02 78 15 96 02/12/21 19:01 75 12 141/71 H 96 02/12/21 19:00 73 13 96 02/12/21 18:59 76 17 149/84 H 96 02/12/21 18:58 74 21 02/12/21 18:00 68 18 128/87 97 02/12/21 17:31 68 14 96 02/12/21 17:30 71 15 132/96 97 02/12/21 17:01 67 16 97 02/12/21 17:00 69 17 123/80 97 02/12/21 16:32 70 15 96 02/12/21 16:30 69 16 125/90 96 02/12/21 16:25 74 73 20 141/92 H 95 02/12/21 15:49 37.1 C 84 20 142/92 H 98 Laboratory Results 02/12/21 02/12/21 02/12/21 Range/Units 19:10 19:10 16:20 WBC (4.8-10.8) K/uL RBC (4.2-5.4) M/uL Hgb (12.0-16.0) g/dL Hct (37-47) % MCV (80-100) fL MCH (25-34) pg MCHC (32-36) g/dL RDW Std Deviation (36.4-46.3) fL RDW Coeff of Mehul (11.5-14.5) % Plt Count (130-400) K/uL MPV (7.4-10.4) fL Immature Gran % (Auto) % Neut % (Auto) % Lymph % (Auto) % [place] % (Auto) % Eos % (Auto) % Baso % (Auto) % Neut # (Auto) (1.4-6.5) K/uL Lymph # (Auto) (1.2-3.4) K/uL [place] # (Auto) (0.11-0.59) K/uL Eos # (Auto) (0-0.5) K/uL Baso # (Auto) (0-0.2) K/uL Immature Gran # (Auto) (0.00-0.02) K/uL Sodium 141 (136-145) mmol/L Potassium 3.7 (3.5-5.1) mmol/L Chloride 106 (98-107) mmol/L Carbon Dioxide 28 (21-32) mmol/L Anion Gap 7.0 (3-11) BUN 15 (7-18) mg/dl Creatinine 0.99 (0.6-1.2) mg/dl Est Cr Clr Drug Dosing 86.0 ml/min Est GFR ( Amer) 73.8 Est GFR (Non-Af Amer) 63.7 BUN/Creatinine Ratio 15.3 (10-20) Glucose 103 H (70-99) mg/dl Calcium 9.7 (8.5-10.1) mg/dl Total Bilirubin 0.7 (0.2-1) mg/dl AST 17 (15-37) U/L ALT 39 (12-78) U/L Alkaline Phosphatase 75 (45-117) U/L Total Protein 7.0 (6.4-8.2) gm/dl Albumin 4.0 (3.4-5.0) gm/dl Globulin 3.0 (2.5-4.0) gm/dl Albumin/Globulin Ratio 1.3 (0.9-2) Triglycerides 94 (0-150) mg/dl Cholesterol 173 (0-200) mg/dl LDL Cholesterol, Calc 111 mg/dl VLDL Cholesterol, Calc 19 mg/dl HDL Cholesterol 43 mg/dl Cholesterol/HDL Ratio 4 Lipase 5767 H (73-393) U/L COVID-19 Eval Order Covid19 IDNow atMVAC SARS-CoV-2, RNA, NAAT NEGATIVE (NEGATIVE) 02/12/21 Range/Units 16:20 WBC 6.44 (4.8-10.8) K/uL RBC 5.34 (4.2-5.4) M/uL Hgb 15.6 (12.0-16.0) g/dL Hct 44.6 (37-47) % MCV 83.5 (80-100) fL MCH 29.2 (25-34) pg MCHC 35.0 (32-36) g/dL RDW Std Deviation 41.8 (36.4-46.3) fL RDW Coeff of Mehul 13.8 (11.5-14.5) % Plt Count 174 (130-400) K/uL MPV 10.3 (7.4-10.4) fL Immature Gran % (Auto) 0.2 % Neut % (Auto) 75.7 % Lymph % (Auto) 12.4 % [place] % (Auto) 7.0 % Eos % (Auto) 4.7 % Baso % (Auto) 0.0 % Neut # (Auto) 4.88 (1.4-6.5) K/uL Lymph # (Auto) 0.80 L (1.2-3.4) K/uL [place] # (Auto) 0.45 (0.11-0.59) K/uL Eos # (Auto) 0.30 (0-0.5) K/uL Baso # (Auto) 0.00 (0-0.2) K/uL Immature Gran # (Auto) 0.01 (0.00-0.02) K/uL Sodium (136-145) mmol/L Potassium (3.5-5.1) mmol/L Chloride (98-107) mmol/L Carbon Dioxide (21-32) mmol/L Anion Gap (3-11) BUN (7-18) mg/dl Creatinine (0.6-1.2) mg/dl Est Cr Clr Drug Dosing ml/min Est GFR ( Amer) Est GFR (Non-Af Amer) BUN/Creatinine Ratio (10-20) Glucose (70-99) mg/dl Calcium (8.5-10.1) mg/dl Total Bilirubin (0.2-1) mg/dl AST (15-37) U/L ALT (12-78) U/L Alkaline Phosphatase (45-117) U/L Total Protein (6.4-8.2) gm/dl Albumin (3.4-5.0) gm/dl Globulin (2.5-4.0) gm/dl Albumin/Globulin Ratio (0.9-2) Triglycerides (0-150) mg/dl Cholesterol (0-200) mg/dl LDL Cholesterol, Calc mg/dl VLDL Cholesterol, Calc mg/dl HDL Cholesterol mg/dl Cholesterol/HDL Ratio Lipase (73-393) U/L COVID-19 Eval Order SARS-CoV-2, RNA, NAAT (NEGATIVE) Supervising Physician Co-Signing Physician Notes Attending addendum: I have physically seen this patient, have supervised the medical residents activities, and agree with the H&P unless as otherwise noted. Assessment and Plan: Acute pancreatitis- Lipase 5767. NSS at 30 mils per hour Follow serial CBC with differential, chemistry profile and lipase levels CT abdomen pelvis negative Order MRCP Check fasting lipid panel Diabetes mellitus- Place on Accu-Cheks before meals and at bedtime/every 6 hours with NovoLog coverage per scale Hypothyroidism- continue levothyroxine Hypertension- Continue metoprolol succinate. Hold losartan and amlodipine while n.p.o. Remaining orders and notations as noted Resident Activity Tracking Resident Involvement: Resident Care Provided Care Provided: Adult Hospital Medicine (1) Acute pancreatitis Acute pancreatitis complication: unspecified Pancreatitis type: unspecified pancreatitis type Qualified Code(s): K85.90 - Acute pancreatitis without necrosis or infection, unspecified
[2021-02-12] MEDS ORDERED: POLYETHYLENE (MIRALAX) 17 GM PACK PO PRN (22:52)
[2021-02-12] MEDS ORDERED: ACETAMINOPHEN 325 MG TAB PO PRN (22:52)
[2021-02-12] MEDS ORDERED: ALUMINUM/MAGNESIUM SUSP 30 ML UDC PO PRN (22:52)
[2021-02-12] MEDS ORDERED: CARBOHYDRATES FOR HYPOGLYCEMIA PO PRN (22:52)
[2021-02-12] MEDS ORDERED: DEXTROSE 50% 50 ML SYRINGE IV PRN (22:52)
[2021-02-12] MEDS ORDERED: MAGNESIUM HYDROXIDE SUSP 30 ML UDC PO PRN (22:52)
[2021-02-12] MEDS ORDERED: GLUCOSE 40% GEL 15 GM TUBE PO PRN (22:52)
[2021-02-12] MEDS ORDERED: GLUCOSE 10 TABS/TUBE PO PRN (22:52)
[2021-02-12] MEDS ORDERED: GLUCAGON FOR INJ 1 MG VIAL SQ PRN (22:52)
[2021-02-12] MEDS: SODIUM CHLORIDE 0.9% 1000ML 1,000 ML IV SCH (23:25)
[2021-02-13] MEDS: SODIUM CHLORIDE 0.9% 1000ML 1,000 ML IV SCH ×2 (04:13→09:16)
[2021-02-13] MEDS: LEVOTHYROXINE SODIUM 137 MCG TABLET PO SCH (05:54)
[2021-02-13 07:17] LABS: Basophils # (auto) 0.01 K/uL (0-0.2); Basophils % (auto) 0.1 %; Eosinophils # (auto) 2.81 K/uL (0-0.5); Eosinophils % (auto) 41.9 %; Hematocrit (blood only) 39.4 % (37-47); Hemoglobin 13.1 g/dL (12.0-16.0); Lymphocytes # (auto) 1.41 K/uL (1.2-3.4); Mean Corpuscular Hemoglobin 28.3 pg (25-34); Mean Corpuscular Hgb Conc 33.2 g/dL (32-36); Mean Corpuscular Volume 85.1 fL (80-100); Mean Platelet Volume 10.1 fL (7.4-10.4); Monocytes # (auto) 0.27 K/uL (0.11-0.59); Platelet Count 146 K/uL (130-400); RDW Standard Deviation 43.3 fL (36.4-46.3); Red Blood Count 4.63 M/uL (4.2-5.4)
[2021-02-13 07:59] LABS: Albumin Level 3.1 gm/dl (3.4-5.0); BUN Creatinine Ratio 16.9 (10-20); Creatinine Clr Calc Pharmacy 112.6 ml/min; Est GFR (African American) 101.6; Est GFR (Non-African American) 87.7; Magnesium 1.9 mg/dl (1.8-2.4); Potassium 3.5 mmol/L (3.5-5.1)
[2021-02-13 08:00] LABS: Albumin Globulin Ratio 1.3 (0.9-2); Bilirubin,Total 0.6 mg/dl (0.2-1); Globulin 2.4 gm/dl (2.5-4.0); Phosphorus 3.5 mg/dl (2.5-4.9); Total Protein 5.5 gm/dl (6.4-8.2)
[2021-02-13] MEDS: VENLAFAXINE HCL XR 37.5 MG CAPXR PO SCH (08:08)
[2021-02-13] MEDS: METOPROLOL SUCC 25MG EXT REL TAB PO SCH (08:08)
[2021-02-13] MEDS: busPIRone 5 MG TAB PO SCH ×3 (08:09→22:17)
[2021-02-13] MEDS: LOSARTAN POTASSIUM 50 MG TAB PO SCH (08:09)
[2021-02-13] MEDS ORDERED: hydroCHLOROthiazide 25 MG TAB PO SCH (09:00)
[2021-02-13] MEDS: D5NSS + 20MEQ KCL 20 MEQ/1,000 ML BAG IV SCH ×2 (10:03→17:16)
[2021-02-13] MEDS: ONDANSETRON INJ 2 MG/ML 2 ML VIAL IV PRN ×2 (12:21→20:08)
--- NOTE | 2021-02-13 14:00 | Hospitalist Progress Note ---
Date of Service February 13, 2021 Assessment & Plan (1) Acute pancreatitis: Lipase rapidly improved. Underlying gallbladder disease needs to be considered. Thiazide diuretic is also a consideration for acute pancreatitis. Will start clear liquids if allowed by GI service. IV fluids taper down. Continue antiemetics and pain control measures as needed Present on Admission?: Yes (2) Diabetes: Type II. Eventual advancement to ADA diet. Sliding scale coverage Present on Admission?: Yes (3) Hypothyroidism: Oral thyroid replacement Present on Admission?: Yes (4) Ankylosing spondylitis: She takes Remicade for ankylosing spondylitis. Will await GI opinion whether this could cause pancreatitis Present on Admission?: Yes (5) HTN (hypertension): She takes losartan, metoprolol, hydrochlorothiazide. HCTZ has been discontinued. This may have caused the pancreatitis. Will follow. DVT prophylaxis: Lovenox subcu Disposition: Eventual discharge to home Present on Admission?: Yes Admission and Anticipated Discharge Date Admission Date: February 12, 2021 Subjective Improved. She still has some nausea and epigastric discomfort but lipase dropped quickly to 351. She is not a alcohol drinker. There is a possibility that the thiazide diuretic could have caused the pancreatitis but gallbladder disease is also a consideration. GI consultation pending. IV adjusted to include dextrose and potassium. IV fluid rate taper down. Will monitor daily labs. She also takes Remicade for ankylosing spondylitis. I am not sure if this can cause pancreatitis or not. Review of Systems Review of Systems: All systems reviewed & are unremarkable except as noted in HPI & below Physical Exam Physical Exam: General-alert and oriented x3, no fevers, no chills HEENT-head atraumatic and normocephalic, TMs intact bilaterally, pupils equal and reactive to light, extraocular muscles intact Neck-no lymphadenopathy or thyromegaly, trachea midline Chest-clear to auscultation percussion. No rales wheezing or rhonchi Cardiac-regular rate and rhythm, normal S1 and S2, no murmurs Abdomen-normal bowel sounds, mild epigastric tenderness. No rebound or guarding. No hepatosplenomegaly Extremities-no cyanosis, clubbing, or edema Neuro-cranial nerves II through XII intact, motor and sensory function within normal limits, strength symmetrical 5/5, no focal deficits Psych-normal affect, normal mood Results & Data Results & Data ([place]) Vital Signs (Past 12 Hours) Vital Signs Temp Pulse Resp BP Pulse Ox 02/13/21 07:35 36.7 C 58 L 18 121/77 96 Laboratory Results 02/13/21 06:49 02/13/21 06:49 PG Care Time/CCT Total # of Minutes Spent Total Time Spent with Patient: Total time spent is greater than 50% in coordination of care (as documented) at patient's floor/unit and/or counseling patient: Coding Level of Care Code 65068 Subseq Hosp Care Lv 3 Diagnoses Acute pancreatitis K85.90 Acute pancreatitis complication: unspecified Pancreatitis type: unspecified pancreatitis type Diabetes E11.9 Hypothyroidism E03.9 Ankylosing spondylitis M45.9 HTN (hypertension) I10 (1) Acute pancreatitis Acute pancreatitis complication: unspecified Pancreatitis type: unspecified pancreatitis type Qualified Code(s): K85.90 - Acute pancreatitis without necrosis or infection, unspecified
[2021-02-13] MEDS ORDERED: ENOXAPARIN INJ 40 MG/0.4 ML SYR SQ ONE (14:15)
--- NOTE | 2021-02-13 17:14 | Consultation Report ---
DATE OF CONSULTATION: 02/13/2021 GASTROINTESTINAL CONSULTATION NOTE REASON FOR CONSULTATION: Nausea, vomiting, and elevated lipase. HISTORY OF PRESENT ILLNESS: The patient is a 55-year-old who for the last 10 days or so has been experiencing some nausea, some vomiting, diarrhea and some epigastric pain which got significantly worse yesterday. She ended up coming to the hospital where she was subsequently admitted with a lipase of [address] scan of the abdomen was performed that did not show any acute findings and nothing that would indicate acute pancreatitis. Today, her lipase is down to 351. She has no known gallstones. Does not drink any alcohol. She has had no new medications other than the Effexor and BuSpar, which were just started after her symptoms began. Her calcium is normal on admission. We will check a triglyceride level. She was scheduled to have an EGD and colonoscopy as an outpatient to evaluate the symptoms on Saturday of this week. PAST MEDICAL HISTORY: Remarkable for diabetes, hypothyroidism, hypertension. She has a horseshoe kidney and ankylosing spondylitis. She has had a hysterectomy in the past, appendectomy. SOCIAL HISTORY: The patient is , does not smoke, does not drink. 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 MEDICATIONS: Amlodipine, hydrochlorothiazide, levothyroxine, metoprolol, vitamin D, Remicade, insulin, losartan, dicyclomine, omeprazole, Zofran, BuSpar, and Effexor. ALLERGIES: ASPIRIN, NONSTEROIDALS, SULFA, SULFASALAZINE AND CELECOXIB. PHYSICAL EXAMINATION: GENERAL: The patient appears in no acute distress. VITAL SIGNS: Normal. She is afebrile. ABDOMEN: Soft. There is a little bit of epigastric tenderness to palpation. IMPRESSION AND PLAN: The patient has epigastric pain, nausea, vomiting, and some diarrhea. Her lipase was significantly elevated on admission, but her CAT scan is negative. It is possible she may have passed a gallstone. I plan on getting an ultrasound to look for stones as they may not show up on CT scan if they are not calcified. We will check a triglyceride level and schedule an EGD for tomorrow for further evaluation. Depending on how that looks and what the other tests show, we may or may not proceed with a colonoscopy.
[2021-02-13] MEDS ORDERED: MoRPHine SULFATE 2 MG/ML CARP IV STA (22:06)
[2021-02-13] MEDS: amLODIPine BESYLATE 5 MG TAB PO SCH (22:17)
[2021-02-14] MEDS: D5NSS + 20MEQ KCL 20 MEQ/1,000 ML BAG IV SCH ×2 (00:37→07:19)
[2021-02-14] MEDS: ONDANSETRON INJ 2 MG/ML 2 ML VIAL IV PRN ×2 (02:12→08:33)
[2021-02-14] MEDS: LEVOTHYROXINE SODIUM 137 MCG TABLET PO SCH (05:43)
[2021-02-14 06:10] LABS: Eosinophils % (auto) 34.7 %; Hematocrit (blood only) 37.9 % (37-47); Hemoglobin 12.8 g/dL (12.0-16.0); Immature Granulocytes # (auto) 0.01 K/uL (0.00-0.02); Immature Granulocytes % (auto) 0.2 %; Lymphocytes # (auto) 1.54 K/uL (1.2-3.4); Lymphocytes % (auto) 31.4 %; Mean Corpuscular Hemoglobin 28.8 pg (25-34); Mean Corpuscular Hgb Conc 33.8 g/dL (32-36); Mean Corpuscular Volume 85.2 fL (80-100); Mean Platelet Volume 10.1 fL (7.4-10.4); Monocytes # (auto) 0.18 K/uL (0.11-0.59); Monocytes % (auto) 3.7 %; Neutrophils # (auto) 1.47 K/uL (1.4-6.5); Platelet Count 157 K/uL (130-400); RDW Coefficient of Variation 14.1 % (11.5-14.5); RDW Standard Deviation 43.8 fL (36.4-46.3); Red Blood Count 4.45 M/uL (4.2-5.4)
[2021-02-14 06:38] LABS: Albumin Level 2.9 gm/dl (3.4-5.0); BUN Creatinine Ratio 7.2 (10-20); Calcium 8.1 mg/dl (8.5-10.1); Creatinine Clr Calc Pharmacy 112.6 ml/min; Est GFR (African American) 101.6; Est GFR (Non-African American) 87.7
[2021-02-14 06:41] LABS: Albumin Globulin Ratio 1.2 (0.9-2); Bilirubin,Total 0.6 mg/dl (0.2-1); Globulin 2.5 gm/dl (2.5-4.0); Total Protein 5.4 gm/dl (6.4-8.2)
--- NOTE | 2021-02-14 07:16 | Ultrasound Report ---
ULTRASOUND RIGHT UPPER QUADRANT ABDOMEN CLINICAL HISTORY: Epigastric abdominal pain. COMPARISON STUDY: Abdominal CT dated 02/12/2021. TECHNIQUE: Real-time, grayscale, and color flow sonography of the right upper quadrant of the abdomen was performed. Images are reviewed in the transverse and longitudinal planes. FINDINGS: Liver: The liver is mildly enlarged and demonstrates heterogeneously increased echotexture consistent with hepatic steatosis. There is no intrahepatic biliary ductal dilatation. The main portal vein is patent. Gallbladder: The gallbladder is normal in appearance. No gallstones are identified. There is no gallb ladder wall thickening or pericholecystic fluid. A sonographic Robles's sign is reportedly absent. Th e common bile duct measures up to 0.5 cm in diameter. Pancreas: Visualized portions of the pancreatic head and body are normal in appearance. The splenic v ein is patent. Right kidney: Horseshoe kidney is incidentally noted. Survey images of the right renal moiety demonst rate normal size and echotexture. There is no hydronephrosis. Ascites: None. IMPRESSION: 1. No acute sonographic abnormality is identified in the right upper quadrant. No gallstones are seen . 2. Hepatomegaly and hepatic steatosis. ACT 112: Negative or not required by law. Electronically signed by: Michael Cruz M.D. 02/14/2021 7:14 AM
[2021-02-14] MEDS: VENLAFAXINE HCL XR 37.5 MG CAPXR PO SCH (07:43)
[2021-02-14] MEDS: LOSARTAN POTASSIUM 50 MG TAB PO SCH (07:43)
[2021-02-14] MEDS: busPIRone 5 MG TAB PO SCH ×3 (07:44→20:09)
[2021-02-14] MEDS: METOPROLOL SUCC 25MG EXT REL TAB PO SCH (07:44)
[2021-02-14] MEDS: ENOXAPARIN INJ 40 MG/0.4 ML SYR SQ SCH ×2 (07:45→07:49)
[2021-02-14] MEDS ORDERED: Nursing to Pharmacy Communication SCH (08:00)
[2021-02-14] MEDS: D5W AND 1/2NSS 1,000 ML IV SCH (10:18)
--- NOTE | 2021-02-14 14:27 | Anesthesiology Consultation ---
Date of Service February 14, 2021 Assessment & Plan (1) Encounter for pre-operative examination: Chart Review Chart Review: Acceptable Risk for Surgery History Surgery Operation Date: 02/14/21 16:00 Proposed Procedures p Esophagogastroduodenoscopy Dr Yossi Sy Height/Weight Height: 6 ft 1 in Weight: 102.7 kg Allergies Allergy/AdvReac Type Severity Reaction Status Date / Time aspirin Allergy Intermediate Hives Verified 02/14/21 14:12 NSAIDS (Non-Steroidal Allergy Intermediate Hives Verified 02/14/21 14:12 Anti-Inflamma Sulfa (Sulfonamide Allergy Intermediate Rash / Verified 02/14/21 14:12 Antibiotics) Headache sulfasalazine Allergy Unknown ? Verified 02/14/21 14:12 celecoxib AdvReac Mild Headache Verified 02/14/21 14:12 Medications Home Medications Medication Instructions Recorded Confirmed Last Taken amlodipine 5 mg tablet 5 mg PO HS 07/27/20 02/12/21 02/11/21 hydrochlorothiazide 25 mg tablet 12.5 mg PO QAM 07/27/20 02/12/21 02/12/21 levothyroxine 137 mcg capsule 137 mcg PO DAILYBB 07/27/20 02/12/21 02/12/21 metoprolol succinate 25 mg 12.5 mg PO QAM tab 08/18/20 02/12/21 02/12/21 tablet,extended release 24 hr ergocalciferol (vitamin D2) 1,250 mcg PO MONTHLY 01/31/21 02/12/21 01/30/21 infliximab [Remicade] See Rx Instructions .ROUTE .COMPLEX 01/31/21 02/12/21 Unknown insulin aspart U-100 [Novolog See Rx Instructions .ROUTE .COMPLEX 01/31/21 02/12/21 12/30/20 U-100 Insulin aspart] losartan 100 mg PO QAM 01/31/21 02/12/21 02/12/21 dicyclomine 20 mg PO QID PRN #20 tab 02/03/21 02/12/21 02/12/21 omeprazole 10 mg PO QAM 02/03/21 02/12/21 02/12/21 ondansetron 4 mg PO Q6H PRN #20 tab 02/03/21 02/12/21 02/12/21 buspirone 5 mg PO TID 02/12/21 02/12/21 02/12/21 venlafaxine 37.5 mg PO DAILY 02/12/21 02/12/21 02/12/21 Active Medications Generic Name Dose Route Start Last Admin Trade Name Freq PRN Reason Stop Dose Admin Amlodipine Besylate 5 mg 02/13/21 21:00 02/13/21 22:17 Amlodipine Besylate 5 Mg Tab PO 03/15/21 20:59 5 mg HS YAMILETH Administration Buspirone HCl 5 mg 02/13/21 09:00 02/14/21 12:53 Buspirone 5 Mg Tab PO 03/15/21 08:59 Not Given TID YAMILETH Enoxaparin Sodium 40 mg 02/14/21 09:00 02/14/21 07:49 Enoxaparin Inj 40 Mg/0.4 Ml Syr SQ 03/16/21 08:59 Not Given QAM YAMILETH Dextrose/Sodium Chloride 1,000 mls @ 80 mls/hr 02/14/21 10:00 02/14/21 10:18 D5w And 1/2nss IV 03/16/21 09:59 80 mls/hr .[id number] YAMILETH Administration Levothyroxine Sodium 137 mcg 02/13/21 06:30 02/14/21 05:43 Levothyroxine Sodium 137 Mcg Tablet PO 03/15/21 06:29 137 mcg DAILYBB YAMILETH Administration Losartan Potassium 100 mg 02/13/21 09:00 02/14/21 07:43 Losartan Potassium 50 Mg Tab PO 03/15/21 08:59 100 mg QAM YAMILETH Administration Metoprolol Succinate 12.5 mg 02/13/21 09:00 02/14/21 07:44 Metoprolol Succ 25mg Ext Rel Tab PO 03/15/21 08:59 12.5 mg QAM YAMILETH Administration Ondansetron HCl 4 mg 02/12/21 22:52 02/14/21 08:33 Ondansetron Inj 2 Mg/Ml 2 Ml Vial IV 03/14/21 22:51 4 mg Q6H PRN Administration Nausea Venlafaxine HCl 37.5 mg 02/13/21 09:00 02/14/21 07:43 Venlafaxine Hcl Xr 37.5 Mg Capxr PO 03/15/21 08:59 37.5 mg DAILY YAMILETH Administration Past Medical History Medical History Ankylosing spondylitis Diabetes Horseshoe kidney Hypertension Hypothyroidism Past Surgical History Surgical History H/O: hysterectomy History of appendectomy History of colonoscopy History of esophagogastroduodenoscopy (EGD) Social History Smoking Status: Never smoker Do You Dip or Chew Tobacco: No Hx Alcohol Use: No Hx Substance Use: No Physical Exam Vital Signs Last Vital Signs Temp 36.8 C 02/14/21 07:37 Pulse 56 L 02/14/21 07:37 Resp 18 02/14/21 07:37 BP 125/81 02/14/21 07:37 Pulse Ox 95 02/14/21 07:37 Testing Laboratory Results 02/14/21 05:54 02/14/21 05:54 02/14/21 02/14/21 11:52 05:50 POC Glucose 96 119 H covid negative 02/12 Electrocardiogram Date: 01/31/21 Findings: + NSR @ (70)
--- NOTE | 2021-02-14 15:03 | History & Physical Report ---
Date of Service February 14, 2021 Assessment & Plan Admission and Anticipated Discharge Date Admission Date: February 12, 2021 History of Present Illness Chief Complaint: epigastric pain, vomiting Primary Care Provider: Mena Chairez DO For EGD Allergies Allergy/AdvReac Type Severity Reaction Status Date / Time aspirin Allergy Intermediate Hives Verified 02/14/21 14:12 NSAIDS (Non-Steroidal Allergy Intermediate Hives Verified 02/14/21 14:12 Anti-Inflamma Sulfa (Sulfonamide Allergy Intermediate Rash / Verified 02/14/21 14:12 Antibiotics) Headache sulfasalazine Allergy Unknown ? Verified 02/14/21 14:12 celecoxib AdvReac Mild Headache Verified 02/14/21 14:12 Home Medications Medication Instructions Recorded Confirmed Type amlodipine 5 mg tablet 5 mg PO HS 07/27/20 02/12/21 History hydrochlorothiazide 25 mg tablet 12.5 mg PO QAM 07/27/20 02/12/21 History levothyroxine 137 mcg capsule 137 mcg PO DAILYBB 07/27/20 02/12/21 History metoprolol succinate 25 mg 12.5 mg PO QAM tab 08/18/20 02/12/21 History tablet,extended release 24 hr ergocalciferol (vitamin D2) 1,250 mcg PO MONTHLY 01/31/21 02/12/21 History infliximab [Remicade] See Rx Instructions .ROUTE .COMPLEX 01/31/21 02/12/21 History insulin aspart U-100 [Novolog See Rx Instructions .ROUTE .COMPLEX 01/31/21 02/12/21 History U-100 Insulin aspart] losartan 100 mg PO QAM 01/31/21 02/12/21 History dicyclomine 20 mg PO QID PRN #20 tab 02/03/21 02/12/21 Rx omeprazole 10 mg PO QAM 02/03/21 02/12/21 History ondansetron 4 mg PO Q6H PRN #20 tab 02/03/21 02/12/21 Rx buspirone 5 mg PO TID 02/12/21 02/12/21 History venlafaxine 37.5 mg PO DAILY 02/12/21 02/12/21 History Past Med/Surg History Medical History Ankylosing spondylitis Diabetes Horseshoe kidney Hypertension Hypothyroidism Surgical History H/O: hysterectomy History of appendectomy History of colonoscopy History of esophagogastroduodenoscopy (EGD) Social History Smoking Status: Never smoker Second Hand Exposure: No; Do You Dip or Chew Tobacco: No; Hx Alcohol Use: No Hx Substance Use: No Preferred Language: [place] Communication Ability: Effective Beliefs That Will Affect Care: None marital status: Current Living Situation: Spouse 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
--- NOTE | 2021-02-14 15:08 | Hospitalist Progress Note ---
Date of Service February 14, 2021 Assessment & Plan (1) Acute pancreatitis: Lipase has normalized. Gallbladder ultrasound negative for stones. She may be a candidate for outpatient HIDA scanning. Thiazide diuretic is also a consideration for acute pancreatitis. EGD today per GI service then start advancing diet. IV fluids taper down. Continue antiemetics and pain control measures as needed (2) Diabetes: Type II. Eventual advancement to ADA diet. Sliding scale coverage (3) Hypothyroidism: Oral thyroid replacement (4) Ankylosing spondylitis: She takes Remicade for ankylosing spondylitis. Will await GI opinion whether this could cause pancreatitis (5) HTN (hypertension): She takes losartan, metoprolol, hydrochlorothiazide. HCTZ has been discontinued. This may have caused the pancreatitis. Will follow. DVT prophylaxis: Lovenox subcu Disposition: Eventual discharge to home. Hopefully tomorrow, February 15 Admission and Anticipated Discharge Date Admission Date: February 12, 2021 Subjective Alert. Feeling better. Gallbladder ultrasound negative for gallstones. Lipase down to normal. IV fluids switch to hypotonic solution due to elevated sodium and chloride. Will advance diet today. She will undergo EGD today and possibly colonoscopy. Hopefully home soon. Review of Systems Review of Systems: All systems reviewed & are unremarkable except as noted in HPI & below Physical Exam Physical Exam: General-alert and oriented x3, no fevers, no chills HEENT-head atraumatic and normocephalic, TMs intact bilaterally, pupils equal and reactive to light, extraocular muscles intact Neck-no lymphadenopathy or thyromegaly, trachea midline Chest-clear to auscultation percussion. No rales wheezing or rhonchi Cardiac-regular rate and rhythm, normal S1 and S2, no murmurs Abdomen-normal bowel sounds, mild epigastric area tenderness. No rebound or guarding Extremities-no cyanosis, clubbing, or edema Neuro-cranial nerves II through XII intact, motor and sensory function within normal limits, strength symmetrical , no focal deficits Psych-normal affect, normal mood Results & Data Results & Data ([facility]) Vital Signs (Past 12 Hours) Vital Signs Temp Pulse Resp BP Pulse Ox 02/14/21 14:16 36.4 C L 61 16 122/85 97 02/14/21 07:37 36.8 C 56 L 18 125/81 95 Laboratory Results 02/14/21 05:54 02/14/21 05:54 PG Care Time/CCT Total # of Minutes Spent Total Time Spent with Patient: Total time spent is greater than 50% in coordination of care (as documented) at patient's floor/unit and/or counseling patient: Coding Level of Care Code 05115 Subseq Hosp Care Lvl 3 Diagnoses Acute pancreatitis K85.90 Acute pancreatitis complication: unspecified Pancreatitis type: unspecified pancreatitis type Diabetes E11.9 Hypothyroidism E03.9 Ankylosing spondylitis M45.9 HTN (hypertension) I10 (1) Acute pancreatitis Acute pancreatitis complication: unspecified Pancreatitis type: unspecified pancreatitis type Qualified Code(s): K85.90 - Acute pancreatitis without necrosis or infection, unspecified
[2021-02-14] MEDS ORDERED: SODIUM CHLORIDE 0.9% 1000ML 1,000 ML IV SCH (15:15)
[2021-02-14] MEDS ORDERED: LIDOCAINE HCL 2% 2 ML VIAL/AMP(20MG/ML) INFIL ONE (15:25)
[2021-02-14] MEDS ORDERED: PROPOFOL IV EMULSION 10 MG/ML 20 ML VIAL IV ONE (15:25)
--- NOTE | 2021-02-14 15:32 | GI REPORT ---
Patient Name: Lesley Suárez Procedure Date: 02/14/2021 2:48 PM Date of : 1965 Admit Type: Inpatient Age: 55 Gender: Female Attending MD: Damon Sy MD Procedure: Upper GI endoscopy Providers: Damon Sy MD Referring MD: Garret Coburn Indications: Epigastric abdominal pain, Nausea with vomiting Medicines: Propofol total dose 250 mg IV, Lidocaine 40 mg IV Complications: No immediate complications. Estimated Blood Loss: Estimated blood loss: none. Procedure: Pre-Anesthesia Assessment: - Prior to the procedure, a History and Physical was performed, and patient medications, allergies and sensitivities were reviewed. The patient's tolerance of previous anesthesia was reviewed. - The risks and benefits of the procedure and the sedation options and risks were discussed with the patient. All questions were answered and informed consent was obtained. After obtaining informed consent, the endoscope was passed under direct vision. Throughout the procedure, the patient's blood pressure, pulse, and oxygen saturations were monitored continuously. The Scope was introduced through the mouth, and advanced to the second part of duodenum. The upper GI endoscopy was accomplished without difficulty. The patient tolerated the procedure well. Findings: The Z-line was regular and was found 41 cm from the incisors. The examined esophagus was normal. The entire examined stomach was normal. The examined duodenum was normal. Impression: - Z-line regular, 41 cm from the incisors. - Normal esophagus. - Normal stomach. - Normal examined duodenum. - No specimens collected. Recommendation: - [facility]. - Clear liquid diet today. Damon Sy M.D. Damon Sy MD 02/14/2021 3:32:06 PM This report has been signed electronically. Note Initiated On: 02/14/2021 2:48 PM Number of Addenda: 0 I attest to the content of the Intraoperative Record and orders documented therein, exceptions below {[id number]}
--- NOTE | 2021-02-14 15:46 | Anesthesiology Progress Note ---
Date of Service February 14, 2021 Anesthesia Post Procedure Vital Signs Vital Signs: Temp Pulse Resp BP Pulse Ox 02/14/21 15:42 58 L 18 130/90 95 02/14/21 15:30 60 16 129/81 96 02/14/21 14:16 36.4 C L 61 16 122/85 97 02/14/21 07:37 36.8 C 56 L 18 125/81 95 02/13/21 22:20 36.6 C 63 15 143/84 H 97 02/13/21 16:38 36.7 C 65 18 131/83 96 Pain Intensity Abdomen: Pain Intensity: 3 Transfer of Care Handoff Completed per policy Notes Mental Status: alert / awake / arousable Patient Amnestic to Procedure: Yes Nausea / Vomiting: adequately controlled Pain: adequately controlled Airway Patency, RR, SpO2: stable & adequate BP & HR: stable & adequate Hydration State: stable & adequate Anesthetic Complications: no major complications apparent
[2021-02-14] MEDS: amLODIPine BESYLATE 5 MG TAB PO SCH (20:09)
[2021-02-15] MEDS: D5W AND 1/2NSS 1,000 ML IV SCH (01:38)
[2021-02-15] MEDS: LEVOTHYROXINE SODIUM 137 MCG TABLET PO SCH (06:20)
[2021-02-15 07:26] LABS: Eosinophils # (auto) 1.05 K/uL (0-0.5); Eosinophils % (auto) 26.8 %; Hematocrit (blood only) 39.1 % (37-47); Lymphocytes # (auto) 1.44 K/uL (1.2-3.4); Lymphocytes % (auto) 36.7 %; Mean Corpuscular Hemoglobin 28.1 pg (25-34); Mean Corpuscular Hgb Conc 33.2 g/dL (32-36); Mean Corpuscular Volume 84.4 fL (80-100); Mean Platelet Volume 9.9 fL (7.4-10.4); Monocytes # (auto) 0.21 K/uL (0.11-0.59); Monocytes % (auto) 5.4 %; Neutrophils # (auto) 1.22 K/uL (1.4-6.5); Neutrophils % (auto) 31.1 %; Platelet Count 141 K/uL (130-400); RDW Coefficient of Variation 13.8 % (11.5-14.5); RDW Standard Deviation 41.8 fL (36.4-46.3); Red Blood Count 4.63 M/uL (4.2-5.4); White Blood Count 3.92 K/uL (4.8-10.8)
[2021-02-15 07:58] LABS: Albumin Level 3.2 gm/dl (3.4-5.0); BUN Creatinine Ratio 5.8 (10-20); Calcium 8.5 mg/dl (8.5-10.1); Creatinine Clr Calc Pharmacy 114.1 ml/min; Est GFR (African American) 103.3; Est GFR (Non-African American) 89.1; Potassium 3.6 mmol/L (3.5-5.1)
[2021-02-15 08:00] LABS: Albumin Globulin Ratio 1.2 (0.9-2); Bilirubin,Total 0.8 mg/dl (0.2-1); Globulin 2.7 gm/dl (2.5-4.0); Total Protein 5.9 gm/dl (6.4-8.2)
[2021-02-15] MEDS: ENOXAPARIN INJ 40 MG/0.4 ML SYR SQ SCH (09:15)
[2021-02-15] MEDS: VENLAFAXINE HCL XR 37.5 MG CAPXR PO SCH (09:15)
[2021-02-15] MEDS: LOSARTAN POTASSIUM 50 MG TAB PO SCH (09:15)
[2021-02-15] MEDS: busPIRone 5 MG TAB PO SCH (09:15)
[2021-02-15] MEDS: METOPROLOL SUCC 25MG EXT REL TAB PO SCH (09:15)
[2021-02-15] MEDS ORDERED: Nursing to Pharmacy Communication SCH (11:30)
--- NOTE | 2021-02-15 12:30 | Discharge Summary ---
Date of Service February 15, 2021 Admission HPI Per Admitting Provider For EGD Principal Diagnosis Acute nonhemorrhagic pancreatitis Discharge Data Allergies Allergy/AdvReac Type Severity Reaction Status Date / Time aspirin Allergy Intermediate Hives Verified 02/14/21 14:12 NSAIDS (Non-Steroidal Allergy Intermediate Hives Verified 02/14/21 14:12 Anti-Inflamma Sulfa (Sulfonamide Allergy Intermediate Rash / Verified 02/14/21 14:12 Antibiotics) Headache sulfasalazine Allergy Unknown ? Verified 02/14/21 14:12 celecoxib AdvReac Mild Headache Verified 02/14/21 14:12 Consultations 02/12/21 20:23 ED Decision to Admit Stat 02/12/21 22:52 Consult Gastroenterology Routine Procedures Performed Operation Date: 02/14/21 16:00 Actual Procedures p Esophagogastroduodenoscopy - Damon Sy Ordered Studies 02/12/21 18:31 CT abd pelvis IV con only Stat 02/13/21 16:34 US abdomen limited Routine Hospital Course (1) Acute pancreatitis: Lipase has normalized. Gallbladder ultrasound negative for stones. She may be a candidate for outpatient HIDA scanning. Thiazide diuretic is also a consideration for acute pancreatitis. HCTZ has been discontinued indefinitely . EGD February 14 per GI service is normal. Advancing diet. IV fluids taper down. Continue antiemetics and pain control measures as needed (2) Diabetes: Type II. Eventual advancement to ADA diet. Sliding scale coverage (3) Hypothyroidism: Oral thyroid replacement (4) Ankylosing spondylitis: She takes Remicade for ankylosing spondylitis. Will await GI opinion whether this could cause pancreatitis (5) HTN (hypertension): She takes losartan, metoprolol, hydrochlorothiazide. HCTZ has been discontinued. This may have caused the pancreatitis. Will follow. DVT prophylaxis: Lovenox subcu Disposition: discharge to home today, February 15 Total Time Total Time Spent Total Time Spent (In Minutes): 35 minutes Total Time Includes: Examination of the Patient, Discharge Planning and Medication Reconciliation Discharge Plan Discharge Items Reason For Visit: PANCREATITIS Medications and DC Order Prescriptions: No Action levothyroxine 137 mcg capsule 137 mcg PO DAILYBB RF: 0 amlodipine 5 mg tablet 5 mg PO HS RF: 0 hydrochlorothiazide 25 mg tablet 12.5 mg PO QAM RF: 0 metoprolol succinate 25 mg tablet extended release 24 hr 12.5 mg PO QAM RF: 0 losartan 50 mg tablet 100 mg PO QAM RF: 0 insulin aspart U-100 [Novolog U-100 Insulin aspart] 100 unit/mL solution See Rx Instructions .ROUTE .COMPLEX RF: 0 Remicade 100 mg Recon Soln See Rx Instructions .ROUTE .COMPLEX RF: 0 ergocalciferol (vitamin D2) 1,250 mcg (50,000 unit) capsule 1,250 mcg PO MONTHLY RF: 0 buspirone 5 mg tablet 5 mg PO TID RF: 0 venlafaxine 37.5 mg capsule,extended release 24hr 37.5 mg PO DAILY RF: 0 omeprazole 10 mg capsule,delayed release(DR/EC) 10 mg PO QAM RF: 0 ondansetron 4 mg tablet,disintegrating 4 mg PO Q6H PRN (Reason: nausea and vomiting) Qty: 20 RF: 0 dicyclomine 20 mg tablet 20 mg PO QID PRN (Reason: abdominal distention) Qty: 20 RF: 0 Admission Data Admit Date/Time: 02/12/21 21:07 Attending Provider: Garret Coburn Admit Provider: Vito Yepez Primary Care Provider: Mena Chairez Other Providers: Yinka Marcos ; Damon Sy Other Interventions: Discharge Summary Assessment (RN) Last Done: 02/14/21 15:45 Coding Level of Care Code D/C Day Management >30 mins Diagnoses Acute pancreatitis K85.90 Acute pancreatitis complication: unspecified Pancreatitis type: unspecified pancreatitis type Diabetes E11.9 Hypothyroidism E03.9 Ankylosing spondylitis M45.9 HTN (hypertension) I10
--- NOTE | 2021-02-21 00:33 | Billing Data ---
Date of Service February 21, 2021 Coding Level of Care Code 94434 Initial Inpt Care Lvl 2
== END 2021-02-15 16:03 | disposition home or self-care (01) | DRG 440 ==
LOC: ED 15:43 → 3N 21:07 → SUATTDRO 21:07 → 3N 21:52

== ENCOUNTER 2022-07-19 07:46 | Observation (INO) ==
--- NOTE | 2022-07-03 15:40 | PAT Medication Instructions ---
Medication Instructions Date of Service July 03, 2022 Home Medications carvedilol 6.25 mg tablet 6.25 mg PO BID ergocalciferol (vitamin D2) 1,250 mcg (50,000 unit) capsule 50,000 unit PO MONTHLY folic acid 1 mg tablet 1 mg PO QDL levothyroxine 137 mcg tablet 137 mcg PO QAM losartan 50 mg tablet 50 mg PO QDL methotrexate sodium 2.5 mg tablet 15 mg PO WK secukinumab 150 mg/mL subcutaneous pen injector (Cosentyx Pen) 300 mg subcut Q4WK amlodipine 5 mg tablet 10 mg PO HS duloxetine 30 mg capsule,delayed release (Cymbalta) 30 mg PO QAM rosuvastatin 5 mg tablet 5 mg PO HS ASK your prescriber and surgeon secukinumab 150 mg/mL subcutaneous pen injector (Cosentyx Pen) 300 mg subcut Q4WK DO NOT take the morning of surgery ergocalciferol (vitamin D2) 1,250 mcg (50,000 unit) capsule 50,000 unit PO MONTHLY folic acid 1 mg tablet 1 mg PO QDL losartan 50 mg tablet 50 mg PO QDL Take morning of surgery With a small sip of water, OTHERWISE NOTHING TO EAT OR DRINK AFTER MIDNIGHT: carvedilol 6.25 mg tablet 6.25 mg PO BID levothyroxine 137 mcg tablet 137 mcg PO QAM duloxetine 30 mg capsule,delayed release (Cymbalta) 30 mg PO QAM Take evening before surgery carvedilol 6.25 mg tablet 6.25 mg PO BID amlodipine 5 mg tablet 10 mg PO HS rosuvastatin 5 mg tablet 5 mg PO HS Other Notes STOP 7 DAYS BEFORE SURGERY methotrexate sodium 2.5 mg tablet 15 mg PO WK If you have any questions please call us at [phone] or [phone] or [phone] or [phone]
--- NOTE | 2022-07-10 14:44 | Anesthesiology Consultation ---
Date of Service July 10, 2022 Assessment & Plan (1) Encounter for pre-operative examination: Chart Review Chart Review: Acceptable Risk for Surgery (pending cardio clearance (07/12/22), PCP clearance (07/06/22) and preop Covid testing results ) and Patient seen in Pre Admission Testing -Awaiting cardio clearance 07/12/22 (will send note to cardio re: chest pain and murmur noted on PAT exam 07/10/22) - Awaiting surgeon ordered PCP clearance- 07/06/22 - Check BSG AM DOS Per PAT appt on 07/10/22, patient denies any recent travel or large group activities. Pt's son recently tested Covid positive after having mild symptoms on 07/07/22- pt was with son on 07/07/22 but son has since went to stay with father. Pt tested Covid negative with home tests 07/08/22-07/09/22. No current Covid related symptoms. Pt educated that she will need to call if symptoms develop. Preop Covid testing will be 10 days from Covid exposure. Educated patient to quarantine from son for at least 10 days. No known Covid infection in the past 90 days. Pt is vaccinated for Covid. Preop Covid testing scheduled 07/17/22 = will await results. Educated on importance of self quarantining, social distancing and wearing mask in public for the patient one week prior to surgery and after Covid testing done History Surgery Operation Date: 07/19/22 07:00 Proposed Procedures p Right Total Hip Arthroplasty - Alcon Singh MD Height/Weight Height: 6 ft 1 in Weight: 111 kg Allergies Allergy/AdvReac Type Severity Reaction Status Date / Time aspirin Allergy Intermediate Hives Verified 07/10/22 14:50 NSAIDS (Non-Steroidal Allergy Intermediate Hives Verified 07/10/22 14:50 Anti-Inflamma Sulfa (Sulfonamide Allergy Intermediate Rash / Verified 07/02/22 13:54 Antibiotics) Headache sulfasalazine Allergy Unknown Headache Verified 07/10/22 14:50 celecoxib AdvReac Mild Headache Verified 07/02/22 13:54 Medications Home Medications Medication Instructions Recorded Confirmed Last Taken carvedilol 6.25 mg tablet 6.25 mg PO BID 01/08/22 07/02/22 Unknown ergocalciferol (vitamin D2) 1,250 50,000 unit PO MONTHLY 01/08/22 07/02/22 Unknown mcg (50,000 unit) capsule folic acid 1 mg tablet 1 mg PO QDL 01/08/22 07/02/22 Unknown levothyroxine 137 mcg tablet 137 mcg PO QAM 01/08/22 07/02/22 Unknown losartan 50 mg tablet 50 mg PO QDL 01/08/22 07/02/22 Unknown methotrexate sodium 2.5 mg tablet 15 mg PO WK 01/08/22 07/02/22 Unknown secukinumab 150 mg/mL subcutaneous 300 mg subcut Q4WK 01/08/22 07/02/22 Unknown pen injector (Cosentyx Pen) amlodipine 5 mg tablet 10 mg PO HS 02/25/22 07/02/22 Unknown duloxetine 30 mg capsule,delayed 30 mg PO QAM 07/02/22 07/02/22 Unknown release (Cymbalta) rosuvastatin 5 mg tablet 5 mg PO HS 07/02/22 07/02/22 Unknown Past Medical History Medical History Ankylosing spondylitis Follows with [facility] 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 Believed to have been related to taking HCTZ for her blood pressure Exercise / Class Metabolic Activity II 4-5 Yardwork/Stairs/Walk up hill (one flight of stairs - no chest pain or SOB ) Past Family History Family History Other No family history of adverse response to anesthesia Past Surgical History Surgical History H/O left knee surgery H/O tooth extraction with dental implant H/O: hysterectomy with BSO History of appendectomy during hysterectomy History of section History of colonoscopy History of esophagogastroduodenoscopy (EGD) Past Anesthesia History No Hx of Anesthesia Complications and No Family Hx of Anesthesia Complications History of PONV No Hx of PONV and No Hx of Motion Sickness Social History Smoking Status: Never smoker Do You Dip or Chew Tobacco: No Hx Alcohol Use: No Hx Substance Use: No substance use type: does not use Review of Systems Occ chest pain- last occurred 07/05/22- noted to left center chest- described as sharp/cramp. Last several minutes- changing positions can somewhat alleviate. No nausea or SOB. No radiation. No specifici triggers- possibly stress related. Hx of snoring- no witnessed apnea- unsure if had sleep study in the past Occ reflux - does not take medication to relieve Patient denies shortness of breath at rest,reflux, cough, wheezing, palpitations. No hx of seizures, stroke, NE. No hx of blood clots or blood transfusions Physical Exam Vital Signs VITALS BP 121/82 P 68 TEMP 98.4 SP02 98% RESP 16 Constitutional no acute distress ENMT Mouth: no TMJ clicking Thyromental Distance: < 3.5 Finger Breadths (3.0) Mallampati Class: III Has post to right molar Neck + limited neck extension (mild ) Respiratory normal respiratory effort; no respiratory distress Auscultation: lungs clear to auscultation bilaterally; no wheezes Cardiovascular Rate/Rhythm: regular rate and regular rhythm Heart Sounds: + murmur (II/ murmur ) Vessels: no carotid bruit Musculoskeletal Spine: no pain with cervical ROM Extremities: extremities normal to inspection Psychiatric Orientation: alert Lab Results Anesthesia Preop Results Results Anesthesia Widget: WBC 5.33 K/ul (4.8-10.8) 07/10/22 Hgb 13.3 g/dl (12.0-16.0) 07/10/22 Hct 39.3 % (34.1-44.9) 07/10/22 Plt 195 K/uL (130-400) 07/10/22 Na 139 mmol/L (136-145) 07/10/22 K 3.5 mmol/L (3.5-5.1) 07/10/22 Cl 105 mmol/L (98-107) 07/10/22 CO2 28 mmol/L (21-32) 07/10/22 BUN 14 mg/dl (6-23) 07/10/22 Creat 0.92 mg/dl (0.6-1.2) 07/10/22 Glucose Level 169 mg/dl (70-99(Fasting)) H 07/10/22 PT 11.3 Seconds (9.0-12.0) 07/10/22 PTT 32.6 Seconds (21.0-31.0) H 07/10/22 INR 1.1 (0.9-1.1) 07/10/22 Urine Color Dark Yellow 07/10/22 Urine Appearance Clear (Clear) 07/10/22 Urine pH 5.0 (4.5-7.5) 07/10/22 Urine Specific [place] 1.031 (1.000-1.030) H 07/10/22 Urine Protein Trace (Negative) H 07/10/22 Urine Glucose (UA) Negative (Negative) 07/10/22 Urine Ketones Trace (Negative) H 07/10/22 Urine Blood Negative (Negative) 07/10/22 Urine Nitrite Negative (Negative) 07/10/22 Urine Bilirubin Negative (Negative) 07/10/22 Urine Urobilinogen Negative (Negative) 07/10/22 Urine Leukocyte Esterase Negative (Negative) 07/10/22 Urine WBC (Auto) 1-5 /hpf (0-5) 07/10/22 Urine RBC (Auto) 10-30 /hpf (0-4) H 07/10/22 Urine Hyaline Casts (Auto) 1-5 /lpf (0-5) 07/10/22 Urine Epithelial Cells (Auto) 10-20 /lpf (0-5) H 07/10/22 Urine Bacteria (Auto) Negative (Negative) 07/10/22 Blood Type A Positive 07/10/22 Antibody Screen NEGATIVE 07/10/22 Testing Laboratory Results 07/06/22= HGB A1C: 5.6 Electrocardiogram Date: 07/10/22 Findings: + NSR @ (64bpm ) Nonspecific ST abnormality When compared to EKG from Jan 08, 2022- nonspecific T wave abnormality is now evident in lateral leads per cardio Chest X-Ray Date: 07/10/22 Findings: + NAD Echocardiogram Date: 07/11/20 EF: 55-59% LV Function: normal RWMA: + none Other Findings: + LVH (moderate/concentric ) and + diastolic dysfunction (Grade I ) Valvular Disease: + no significant valvular disease Aortic root and proximal ascending aorta are normal in size
[~2022-07-19 07:46] MED LIST changes: +ACETAMINOPHEN 500 MG TAB PO SCH; +BUPIVACAINE 0.5 % 5 MG/1 ML PF 10ML VIAL ONE; -LEVO112T4 PO; +LR 500ML BOLUS, THEN 15ML/HR IV SCH; +LR 60ML/HR IV SCH; -RMCI IV; +ROPIVACAINE 0.5% HCL/PF 150 MG, BUPIVACAINE 0.75% MPF 20 ML, EPINEPHrine 0.15 MG, dexAM... INFIL SCH; +TRANEXAMIC ACID 1,000 MG **IV Intra-op IV SCH; +ceFAZolin 2000MG 2,000 MG/15 ML SYR IV SCH
[2022-07-19] MEDS ORDERED: MIDAZOLAM HCL 1 MG/ML 2ML VIAL ONE (08:22)
[2022-07-19] MEDS: TRANEXAMIC ACID 1,000 MG **IV Pre-op IV SCH ×2 (08:25→09:20)
--- NOTE | 2022-07-19 09:14 | History & Physical Bridge Note ---
Date of Service July 19, 2022 History & Physical Bridge Note I have examined the patient, reviewed the History & Physical and in the interval since the performance of the History & Physical I have noted the following changes of clinical significance: no changes noted
[2022-07-19] MEDS ORDERED: KETAMINE 50 MG/5 ML SYRINGE ONE (09:15)
[2022-07-19] MEDS ORDERED: fentaNYL citrate 100 MCG/2 ML VIAL ONE ×2 (09:15→10:28)
[2022-07-19] MEDS ORDERED: ORTHO JOINT ANESTHETIC ONE (09:22)
[2022-07-19] MEDS ORDERED: PROPOFOL IV EMULSION 10 MG/ML 20 ML VIAL IV ONE (10:11)
[2022-07-19] MEDS ORDERED: SUCCINYLCHOLINE 100MG/5ML SYR IV ONE (10:11)
[2022-07-19] MEDS ORDERED: ONDANSETRON INJ 2 MG/ML 2 ML VIAL ONE (10:11)
[2022-07-19] MEDS ORDERED: DEXAMETHASONE SOD INJ 4 MG/ML VIAL ONE (10:11)
[2022-07-19] MEDS ORDERED: LIDOCAINE 2% MPF LOCAL 5 ML VIAL INFIL ONE (10:11)
[2022-07-19] MEDS ORDERED: GLYCOPYRROLATE 0.2 MG/ML VIAL ONE (10:11)
[2022-07-19] MEDS ORDERED: ATROPINE SULFATE 0.1 MG/ML 10ML SYR IV PRN (10:12)
[2022-07-19] MEDS ORDERED: ePHEDrine sulfate 50 MG/ML AMP IV PRN (10:12)
[2022-07-19] MEDS ORDERED: fentaNYL citrate 100 MCG/2 ML VIAL IV PRN (10:12)
[2022-07-19] MEDS ORDERED: ONDANSETRON INJ 2 MG/ML 2 ML VIAL IV PRN (10:12)
[2022-07-19] MEDS ORDERED: hydrALAZINE HCL 20 MG/ML VIAL ONE (10:39)
[2022-07-19] MEDS ORDERED: METOPROLOL TARTRATE 1 MG/ML VIAL IV ONE (11:02)
[2022-07-19] MEDS ORDERED: HYDROmorphone INJ 2 MG/ML SYR/VIAL ONE (11:36)
--- NOTE | 2022-07-19 11:44 | Operative Report ---
Post Operative Report Pre & Post Diagnosis Operation Date: 07/19/22 09:10 Pre-Op Diagnosis: Unilateral Primary Osteoarthritis, Right Hip Post-Op Diagnosis: Unilateral Primary Osteoarthritis, Right Hip I identified the patient and participated in the time-out.: Yes Procedure Operation Date: 07/19/22 09:10 Actual Procedures p Right Total Hip Arthroplasty(Right) - Alcon Singh MD Surgeon Alcon Singh MD [employer] SEDRICK Arciniega PA-C. No resident or fellow was available to assist Estimated Blood Loss 200 Findings Consistent with Post-Op Diagnosis Specimens Right femoral head Anesthesia Type General Complications none Disposition Disposition: Recovery Room Indications 56-year-old female with right hip osteoarthritis refractory to conservative management. X-rays demonstrate [id number] disease. I had a long discussion w ith her about the risks and benefits of surgery, alternatives, and expected outcomes. After reviewing all these she elected to proceed with surgery. All questions were answered. Informed consent was signed. Description of Procedure Patient was identified in the preoperative holding area and the surgical site, right hip, was marked. The patient was brought back to the main operating room, placed in the operating table and general anesthesia was administered. She was carefully moved into the lateral decubitus position. Axillary roll was placed. All bony prominences were padded. Perioperative antibiotics and tranexamic acid 1 gram IV were administered. Operative extremity was prepped and draped in the normal sterile fashion. Prior to incision a multidisciplinary timeout was called. All in the room were in agreement. We began by making an incision for a posterior approach to the hip. We dissected down through subcutaneous tissues to the level of the fascia. The fascia was incised in line with the incision. Charnley bow was placed. The trochanteric bursa was excised. The piriformis and short external rotators were dissected off the posterior aspect of the hip. A box cut was made in the capsule. The femoral head was dislocated. The femoral neck cut was made at our preoperative template. The acetabulum was then exposed. The labrum was sharply excised. Contents of the cotyloid fossa were removed with electrocautery. We then began reaming at a size 8 mm less than our preoperative template. We reamed up by 1 [address] increments [address] the way up to a size 56 mm cup. This gave us good bleeding cancellus bone circumferentially. The acetabulum was then irrigated out and dried. The real Lanse Gription cup was then impacted down into position with 45 degrees of lateral opening and 20 degrees of anteversion. A single cancellous bone screw was placed up into the ilium. Excellent fixation was obtained. A trial liner for a 36 mm femoral head was then placed. Next we turned our attention to the femur. The lateral neck was removed with a box osteotome. Intramedullary guide was used followed by the lateralizing reamer. We then reamed up to a size 6 [place] stem. We then broached all the way up to a size 6. We began trialing with a high offset neck and a +5 head. Hip was reduced. Leg lengths were symmetric. The hip was stable in extension and external rotation, and stable in the sleeper position. At 90 degrees of hip flexion the hip could be internally rotated 65 degrees before levering out of the cup. I was very happy with the stability exam. Therefore the hip was dislocated and the femoral trial was removed. The acetabulum was re-exposed, and the trial liner was removed. An Altrx polyethylene liner for a 36 mm femoral head was then impacted into the shell. The locking mechanism was checked to ensure that it had engaged which it had. The femur was re-exposed. The femoral canal was irrigated and dried. The real size 6 high offset [place] femoral stem was opened up. This was impacted down into position. It sat at the same level as the femoral trial. Therefore the 36 mm ceramic femoral head with a +5 mm offset was opened up and gently impacted down onto the trunnion. The hip was atraumatically reduced. Another 1 gram of IV tranexamic acid was started prior to closure. The wound was irrigated out with sterile Betadine solution. The periarticular injection cocktail was then placed. The short external rotators, piriformis, and posterior capsule were repaired through drill holes in the greater trochanter using #2 Vicryl. The fascia was run with a looped #1 PDS. The subcutaneous layer was closed with #1 PDS. The dermal layer was closed with 2-0 Vicryl. Zip line was used for the skin followed by a Silverlon dressing. A compressive dressing was then placed. The patient was then rolled supine. Leg lengths were rechecked and were symmetric. An abduction pillow was placed. Sedation was lifted and the patient was transferred to recovery room in stable condition. Summary of implants: Depuy Lanse Gription Acetabular Shell Sector Cup, 56 mm outer diameter Lanse Cancellous bone screw, 6.5 x 40 mm Lanse Altrx Polyethylene Acetabular Liner, Neutral, with a 36 mm inner diameter DePuy [place] Femoral stem with [place], 12/14 taper, size 6 high 36 mm ceramic femoral head with +5 offset Postoperative course: Patient will be admitted to the hospital from the recovery room. Patient will be weightbearing as tolerated with posterior hip precaut ions. Xarelto for DVT prophylaxis as the patient has a history of antiphospholipid antibody syndrome and also has an allergy to aspirin. I attest to the content of the Intraoperative Record and any orders documented therein. Any exceptions are noted below.
[2022-07-19] MEDS ORDERED: MAGNESIUM HYDROXIDE SUSP 30 ML UDC PO PRN (11:46)
[2022-07-19] MEDS ORDERED: ALUMINUM/MAGNESIUM SUSP 30 ML UDC PO PRN (11:46)
[2022-07-19] MEDS ORDERED: diphenhydrAMINE 50 MG/ML VIAL IV PRN (11:46)
[2022-07-19] MEDS ORDERED: METOCLOPRAMIDE HCL INJ 5 MG/ML 2 ML VIAL IV PRN (11:46)
[2022-07-19] MEDS ORDERED: bisacodyL 10 MG SUPP PR PRN (11:46)
[2022-07-19] MEDS ORDERED: NALOXONE HCL 0.4 MG/1 ML VIAL/CARP IV PRN (11:46)
--- NOTE | 2022-07-19 11:46 | Operative Report ---
Post Operative Report Pre & Post Diagnosis Operation Date: 07/19/22 09:10 Pre-Op Diagnosis: Unilateral Primary Osteoarthritis, Right Hip Post-Op Diagnosis: Unilateral Primary Osteoarthritis, Right Hip I identified the patient and participated in the time-out.: Yes Procedure Operation Date: 07/19/22 09:10 Actual Procedures p Right Total Hip Arthroplasty(Right) - Alcon Singh MD Surgeon Alcon Singh MD Trapeze Artist SEDRICK Arciniega PA-C. No resident or fellow was available to assist Estimated Blood Loss 200 Findings Consistent with Post-Op Diagnosis Specimens femoral head Description of Procedure I was present during the entire case assisting with positioning, prepping, draping, wound retraction, wound closure, dressing and abduction pillow placed. No fellow present. Please see Dr. Singh procedure note for specifics of the case. I attest to the content of the Intraoperative Record and any orders documented therein. Any exceptions are noted below.
[2022-07-19] MEDS ORDERED: ERGOCALCIFEROL 50,000 UNITS 1250 MCG CAP PO SCH (12:00)
--- NOTE | 2022-07-19 12:17 | XRay Report ---
AP PELVIS ONE VIEW History: Right total hip arthroplasty. Degenerative arthritis. Postop. FINDINGS: The patient is status post a right total hip arthroplasty. The hardware is intact. No fract ure or dislocation. IMPRESSION: Right total hip arthroplasty. No evidence for hardware complication ACT 112: Negative or not required by law. Electronically signed by: Johnathan Mackey M.D. 07/19/2022 12:16 PM
[2022-07-19] MEDS: SODIUM CHLORIDE 0.9% 1000ML 1,000 ML IV SCH (13:25)
[2022-07-19] MEDS: oxyCODONE HCL IR 5 MG TAB (IMMEDIATE RELEASE) PO PRN ×2 (13:26→18:34)
--- NOTE | 2022-07-19 13:29 | Anesthesiology Progress Note ---
Date of Service July 19, 2022 Anesthesia Post Procedure Vital Signs Vital Signs: Temp Pulse Pulse Resp BP BP Pulse Ox 07/19/22 13:17 36.5 C 68 14 112/76 97 07/19/22 12:49 07/19/22 12:45 36.4 C L 63 16 116/79 96 07/19/22 12:15 65 12 112/79 94 07/19/22 12:05 70 15 123/84 92 07/19/22 11:55 69 16 119/81 95 07/19/22 11:46 36.6 C 93 H 11 L 148/92 H 94 07/19/22 08:21 36.9 C 64 20 159/105 H 97 O2 Del Method O2 Flow Rate 07/19/22 13:17 Nasal Cannula 2 07/19/22 12:49 Nasal Cannula 2 07/19/22 12:45 Nasal Cannula 2 07/19/22 12:15 Nasal Cannula 2 07/19/22 12:05 Nasal Cannula 2 07/19/22 11:55 Nasal Cannula 2 07/19/22 11:46 Nasal Cannula 2 07/19/22 08:21 Room Air Pain Intensity Right Hip: Pain Intensity: 5
--- NOTE | 2022-07-19 13:33 | Hospitalist Consultation ---
Date of Consultation July 19, 2022 Assessment & Plan (1) Status post total right knee replacement: Pain and VTE management per orthopedic surgery. Thank you for the consult. Will review patient with post op labs in AM. (2) Ankylosing spondylitis: Continue her usual methotrexate on Saturday with daily folic acid Continue Cymbalta for pain (3) Antiphospholipid antibody positive: Increased risk of venous thromboembolism. On Xarelto per orthopedic surgery. (4) Hypertension: Continue amlodipine, carvedilol and losartan with hold parameters. (5) Hypothyroidism: TSH 2.989 in January Continue levothyroxine 137mcg PO daily (6) Hyperlipidemia: Continue rosuvastatin 5mg PO HS Plan VTE Prophylaxis - Xarelto per surgery management Diet - heart healthy Disposition - no acute medical needs, disposition per orthopedic surgery History of Present Illness Reason for Consultation: Post op management Attending Physician: Alcon Singh MD History of Present Illness Lesley Suárez is a 56 year old female elective admission for right total hip arthroplasty due to hip osteoarthritis performed today [07/19] by Dr Singh. She reports feeling a little tired and dizzy post operatively however the dizziness has now resolved. Chronic medical conditions and medications reviewed with the patient. She reports not taking any of her usual medications this mo rning. Pre-operative labs unremarkable. Allergies Allergy/AdvReac Type Severity Reaction Status Date / Time aspirin Allergy Intermediate Hives Verified 07/19/22 08:12 NSAIDS (Non-Steroidal Allergy Intermediate Hives Verified 07/19/22 08:12 Anti-Inflamma Sulfa (Sulfonamide Allergy Intermediate Rash / Verified 07/19/22 08:12 Antibiotics) Headache sulfasalazine Allergy Unknown Headache Verified 07/19/22 08:12 celecoxib AdvReac Mild Headache Verified 07/19/22 08:12 Home Medications Medication Instructions Recorded Confirmed Type carvedilol 6.25 mg tablet 6.25 mg PO BID 01/08/22 07/19/22 History ergocalciferol (vitamin D2) 1,250 50,000 unit PO MONTHLY 01/08/22 07/19/22 History mcg (50,000 unit) capsule folic acid 1 mg tablet 1 mg PO QDL 01/08/22 07/19/22 History levothyroxine 137 mcg tablet 137 mcg PO QAM 01/08/22 07/19/22 History losartan 50 mg tablet 50 mg PO QDL 01/08/22 07/19/22 History methotrexate sodium 2.5 mg tablet 15 mg PO WK 01/08/22 07/19/22 History secukinumab 150 mg/mL subcutaneous 300 mg subcut Q4WK 01/08/22 07/19/22 History pen injector (Cosentyx Pen) amlodipine 5 mg tablet 10 mg PO HS 02/25/22 07/19/22 History duloxetine 30 mg capsule,delayed 30 mg PO QAM 07/02/22 07/19/22 History release (Cymbalta) rosuvastatin 5 mg tablet 5 mg PO HS 07/02/22 07/19/22 History Patient History Medical History (Updated 07/19/22 @ 14:03 by Buster Garcias MD) Acute pancreatitis Ankylosing spondylitis Follows with [facility] 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. Believed to have been related to taking HCTZ for her blood pressure Surgical History (Updated 07/19/22 @ 13:51 by Buster Garcias MD) H/O left knee surgery H/O tooth extraction with dental implant H/O: hysterectomy with BSO History of appendectomy during hysterectomy History of section History of colonoscopy History of esophagogastroduodenoscopy (EGD) Family History Other No family history of adverse response to anesthesia Social History Smoking Status: Never smoker Second Hand Exposure: No; Do You Dip or Chew Tobacco: No; Tobacco Cessation Education Requested by Patient: No Hx Alcohol Use: No Hx Substance Use: No Preferred Language: Mongolian Communication Ability: Effective Flute Grinder Required: No Beliefs That Will Affect Care: None marital status: Current Living Situation Comment: son (15 year old) 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 Other Information That Helps Us Care for You: No Feels Safe at Home: Yes Safety Concerns: Feels Safe At This Time Assistive Devices: Cane and Glasses Review of Systems Review of Systems: All systems reviewed & are unremarkable except as noted in HPI & below Physical Exam Constitutional: WD/WN, vitals as above Eyes: + anicteric sclerae; normal pupil size ENMT: external ear and nose normal, oropharynx normal Neck: trachea midline, no thyromegaly Respiratory: normal respiratory effort, lungs clear to auscultation Cardiovascular: RRR, no murmur, no edema Gastrointestinal (Abdomen): normal bowel sounds, soft, nontender, no hepatosplenomegaly Skin: no rashes, warm and dry Neurologic: moves all extremities (RLE ankle only tested) and awake; not confused Psychiatric: A+Ox3, euthymic affect Results & Data Results & Data ([facility]) Vital Signs (Past 12 Hours) Vital Signs Temp Pulse Pulse Resp BP BP Pulse Ox 07/19/22 13:17 36.5 C 68 14 112/76 97 07/19/22 12:49 07/19/22 12:45 36.4 C L 63 16 116/79 96 07/19/22 12:15 65 12 112/79 94 07/19/22 12:05 70 15 123/84 92 07/19/22 11:55 69 16 119/81 95 07/19/22 11:46 36.6 C 93 H 11 L 148/92 H 94 07/19/22 08:21 36.9 C 64 20 159/105 H 97 O2 Del Method O2 Flow Rate 07/19/22 13:17 Nasal Cannula 2 07/19/22 12:49 Nasal Cannula 2 07/19/22 12:45 Nasal Cannula 2 07/19/22 12:15 Nasal Cannula 2 07/19/22 12:05 Nasal Cannula 2 07/19/22 11:55 Nasal Cannula 2 07/19/22 11:46 Nasal Cannula 2 07/19/22 08:21 Room Air PG Care Time/CCT Total # of Minutes Spent Total Time Spent with Patient: Total time spent is greater than 50% in coordination of care (as documented) at patient's floor/unit and/or counseling patient: Coding Level of Care Code 08690 Inpt Consult Level 3 Diagnoses Status post total right knee replacement Z96.651 Ankylosing spondylitis M45.9 Antiphospholipid antibody positive R76.0 Hypertension I10 Hypothyroidism E03.9 Hyperlipidemia E78.5
[2022-07-19] MEDS ORDERED: PHARMACY GLYCEMIC MGMT CONSULT PRN (14:49)
--- NOTE | 2022-07-19 15:19 | Pharmacy Report ---
Pharmacy Glycemic Short Note 2 - Date of Service July 19, 2022 - Glycemic Short BSG Results (Last 24 hours): 07/19/22 07/19/22 08:06 13:28 POC Glucose 124 H 199 H OUTPATIENT ANTIDIABETIC REGIMEN: * N/A * HbA1C pending ASSESSMENT: * Ms Suárez is s/p R hip surgery. Patient received dexamethasone 4 mg IV intraop + 4 mg topically in ortho mix. * BSG prior to surgery was 124 mg/dL and after surgery was 199 mg/dL. * NPH 0.4 units/kg of adjBW or 35 units. * Will give Novolog weight-based stress 2/3. Overnight checks. PLAN FOR INPATIENT GLYCEMIC CONTROL: * Basal insulin * NPH 35 units x 1 * Bolus insulin * NovoLog per scale ACHS or Q6hrs while NPO * Goal Range: Low 110 mg/dL - High 140 mg/dL * Correction Factor: 20 mg/dL/unit * Nutritional / Prandial insulin per carb ratio of 1 unit per 7 grams CHO consumed
[2022-07-19] MEDS ORDERED: GLUCOSE 40% GEL 15 GM TUBE PO PRN (15:30)
[2022-07-19] MEDS ORDERED: GLUCAGON FOR INJ 1 MG VIAL IM PRN (15:30)
[2022-07-19] MEDS ORDERED: DEXTROSE 50% 50 ML SYRINGE IV PRN (15:30)
[2022-07-19] MEDS ORDERED: CARBOHYDRATES FOR HYPOGLYCEMIA PO PRN (15:30)
[2022-07-19] MEDS ORDERED: NovoLIN-N (NPH) PER UNIT CHARGE SQ ONE (15:30)
[2022-07-19] MEDS ORDERED: GLUCOSE 10 TAB/TUBE PO PRN (15:30)
[2022-07-19] MEDS: ONDANSETRON INJ 2 MG/ML 2 ML VIAL IV PRN ×2 (17:00→23:42)
[2022-07-19] MEDS: ACETAMINOPHEN 500 MG TAB PO SCH (17:40)
[2022-07-19] MEDS ORDERED: TRANEXAMIC ACID / 0.7% NACL 1,000 MG/100 ML BAG IV SCH (18:00)
[2022-07-19] MEDS: INSULIN ASPART PER UNIT SC SCH ×2 (18:33→20:31)
[2022-07-19] MEDS: ceFAZolin 2000MG 2,000 MG/15 ML SYR IV SCH (18:34)
[2022-07-19] MEDS: DOCUSATE SODIUM 100 MG CAP PO SCH (20:32)
[2022-07-19] MEDS: carvediloL 6.25 MG TAB PO SCH (20:33)
[2022-07-19] MEDS ORDERED: SENNA 8.6 MG TAB PO SCH (21:00)
[2022-07-19] MEDS ORDERED: ROSUVASTATIN CALCIUM 5 MG TAB PO SCH (21:00)
[2022-07-19] MEDS ORDERED: amLODIPine BESYLATE 5 MG TAB PO SCH (21:00)
[2022-07-20] MEDS: INSULIN ASPART PER UNIT SC SCH ×4 (00:03→13:11)
[2022-07-20] MEDS: ceFAZolin 2000MG 2,000 MG/15 ML SYR IV SCH (01:44)
[2022-07-20] MEDS: ACETAMINOPHEN 500 MG TAB PO SCH ×2 (01:46→10:17)
[2022-07-20] MEDS: SODIUM CHLORIDE 0.9% 1000ML 1,000 ML IV SCH (01:51)
[2022-07-20] MEDS ORDERED: LEVOTHYROXINE SODIUM 137 MCG TABLET PO SCH (06:30)
[2022-07-20 07:20] LABS: Basophils # (auto) 0.01 K/uL (0-0.2); Basophils % (auto) 0.1 %; Eosinophils # (auto) 0.01 K/uL (0-0.50); Eosinophils % (auto) 0.1 %; Hematocrit (blood only) 32.5 % (34.1-44.9); Hemoglobin 10.7 g/dl (12.0-16.0); Immature Granulocytes # (auto) 0.04 K/uL (0.00-0.02); Immature Granulocytes % (auto) 0.4 %; Lymphocytes # (auto) 1.03 K/uL (1.2-3.4); Mean Corpuscular Hgb Conc 32.9 g/dL (32.0-36.0); Mean Corpuscular Volume 88.1 fL (80.0-100.0); Mean Platelet Volume 10.2 fL (9.4-12.3); Monocytes % (auto) 7.5 %; Neutrophils # (auto) 7.58 K/uL (1.4-6.5); Neutrophils % (auto) 80.9 %; Platelet Count 181 K/uL (130-400); RDW Coefficient of Variation 13.2 % (11.5-14.5); RDW Standard Deviation 42.5 fL (36.4-46.3); Red Blood Count 3.69 M/uL (3.93-5.22); White Blood Count 9.37 K/ul (4.8-10.8)
[2022-07-20 07:41] LABS: BUN Creatinine Ratio 16.7 (10-20); Calcium 8.6 mg/dl (8.5-10.1); Creatinine Clr Calc Pharmacy 85.8 ml/min; Est GFR (African American) 70.7 ml/min; Potassium 4.3 mmol/L (3.5-5.1)
[2022-07-20] MEDS ORDERED: dexAMETHasone 4 MG TAB PO SCH (08:00)
[2022-07-20 08:31] LABS: Estimated Average Glucose 120 mg/dl; Hemoglobin A1C 5.8 % (4.5-5.6)
[2022-07-20] MEDS: carvediloL 6.25 MG TAB PO SCH (08:39)
[2022-07-20] MEDS: DOCUSATE SODIUM 100 MG CAP PO SCH (08:40)
[2022-07-20] MEDS ORDERED: MULTIVITAMIN TAB PO SCH (09:00)
[2022-07-20] MEDS ORDERED: DULoxetine HCL 30 MG CAP PO SCH (09:00)
[2022-07-20] MEDS ORDERED: metHOTREXate sodium 2.5 MG TAB PO SCH (09:00)
[2022-07-20] MEDS ORDERED: RIVAROXABAN 10 MG TABLET PO SCH (09:00)
[2022-07-20] MEDS ORDERED: NovoLIN-N (NPH) PER UNIT CHARGE SQ ONE (09:00)
--- NOTE | 2022-07-20 09:16 | Orthopedic Progress Note ---
Date of Service July 20, 2022 Assessment & Plan (1) Status post total hip replacement, right: Plan: Total hip precautions reviewed PT/OT DVT prophylaxis with Xarelto and SHAE stockings Pain control with p.o. medication Ice with easy wrap Abduction pillow use x6 weeks postoperatively Plan is to discharge later today with in-home physical therapy for the first [address] dressing in [address] Follow-up with [facility] orthopedics as previously scheduled With questions contact our clinic at [phone] Admission and Anticipated Discharge Date Admission Date: July 19, 2022 Subjective This 56-year-old female is day 1 status post right total hip arthroplasty. Patient states she is doing very well. She denies any significant pain at present. States that her hip feels much better than it did prior surgically. Currently she denies any signs or symptoms of infection. She denies chest pain, shortness of breath, fever, chills, sweats right lower extremity. She also denies nausea, vomiting, diarrhea or difficulty voiding. Review of Systems Review of Systems: All systems reviewed & are unremarkable except as noted in HPI & below Physical Exam Physical Exam: Right hip: Outer dressing was removed. Silverlon is intact, clean and dry. Was a small area that healed up slightly so I reinforced it with a Tegaderm. Patient is able to perform an active straight leg raise test. She is able to actively dorsi and plantarflex her foot. She tolerates logroll testing. I passive hip flexion to 80 degrees causes no pain. She has no pain with light passive external rotation. She does experience a twinge of pain with very light passive internal rotation. Quad strength is 3 out of 5. Patient is neurovascularly intact in right lower extremity. Results & Data ([facility]) Vital Signs (Past 12 Hours) Vital Signs Temp Pulse Resp BP Pulse Ox O2 Del Method 07/20/22 07:11 36.7 C 61 16 115/70 95 Room Air 07/20/22 03:11 36.7 C 52 L 18 120/77 95 Room Air 07/19/22 23:51 36.6 C 58 L 16 127/75 98 Room Air Diagnostic Findings Laboratory Results WBC 9.37 K/ul (4.8-10.8) 07/20/22 07:01 RBC 3.69 M/uL (3.93-5.22) L 07/20/22 07:01 Hgb 10.7 g/dl (12.0-16.0) L 07/20/22 07:01 Hct 32.5 % (34.1-44.9) L 07/20/22 07:01 MCV 88.1 fL (80.0-100.0) 07/20/22 07:01 MCH 29.0 pg (25.0-34.0) 07/20/22 07:01 MCHC 32.9 g/dL (32.0-36.0) 07/20/22 07:01 RDW Std Deviation 42.5 fL (36.4-46.3) 07/20/22 07:01 RDW Coeff of Mehul 13.2 % (11.5-14.5) 07/20/22 07:01 Plt Count 181 K/uL (130-400) 07/20/22 07:01 MPV 10.2 fL (9.4-12.3) 07/20/22 07:01 Immature Gran % (Auto) 0.4 % 07/20/22 07:01 Neut % (Auto) 80.9 % 07/20/22 07:01 Lymph % (Auto) 11.0 % 07/20/22 07:01 [place] % (Auto) 7.5 % 07/20/22 07:01 Eos % (Auto) 0.1 % 07/20/22 07:01 Baso % (Auto) 0.1 % 07/20/22 07:01 Neut # (Auto) 7.58 K/uL (1.4-6.5) H 07/20/22 07:01 Lymph # (Auto) 1.03 K/uL (1.2-3.4) L 07/20/22 07:01 [place] # (Auto) 0.70 K/uL (0.24-0.82) 07/20/22 07:01 Eos # (Auto) 0.01 K/uL (0-0.50) 07/20/22 07:01 Baso # (Auto) 0.01 K/uL (0-0.2) 07/20/22 07:01 Immature Gran # (Auto) 0.04 K/uL (0.00-0.02) H 07/20/22 07:01 Sodium 137 mmol/L (136-145) 07/20/22 07:01 Potassium 4.3 mmol/L (3.5-5.1) 07/20/22 07:01 Chloride 104 mmol/L (98-107) 07/20/22 07:01 Carbon Dioxide 27 mmol/L (21-32) 07/20/22 07:01 Anion Gap 6 (3-11) 07/20/22 07:01 BUN 17 mg/dl (6-23) 07/20/22 07:01 Creatinine 1.02 mg/dl (0.6-1.2) 07/20/22 07:01 Est Cr Clr Drug Dosing 85.8 ml/min 07/20/22 07:01 Est GFR ( Amer) 70.7 ml/min 07/20/22 07:01 Est GFR (Non-Af Amer) 61.0 ml/min 07/20/22 07:01 BUN/Creatinine Ratio 16.7 (10-20) 07/20/22 07:01 Glucose 124 mg/dl (70-99(Fasting)) H 07/20/22 07:01 POC Glucose 136 mg/dl (70-99) H 07/20/22 07:47 Estimat Average Glucose 120 mg/dl 07/20/22 07:01 Hemoglobin A1c 5.8 % (4.5-5.6) H 07/20/22 07:01 Calcium 8.6 mg/dl (8.5-10.1) 07/20/22 07:01 SARS-CoV-2, RNA, NAAT NEGATIVE (NEGATIVE) 07/19/22 08:07 Impressions Pelvis X-Ray 07/19/22 11:46 AP PELVIS ONE VIEW History: Right total hip arthroplasty. Degenerative arthritis. Postop. FINDINGS: The patient is status post a right total hip arthroplasty. The hardware is intact. No fracture or dislocation. IMPRESSION: Right total hip arthroplasty. No evidence for hardware complication ACT 112: Negative or not required by law. Electronically signed by: Johnathan Mackey M.D. 07/19/2022 12:16 PM
--- NOTE | 2022-07-20 09:24 | Discharge Summary ---
Date of Service July 20, 2022 Admission HPI Per Admitting Provider Patient is a 56 Years year-old Female presenting today for their pre-operative history and physical examination prior to undergoing a right total hip arthroplasty 07/[address] Singh. She has failed conservative treatment for right hip osteoarthritis and has elected to proceed with surgical intervention. Admission Exam Per Admitting Provider General: Pt is well nourished, seated on the exam table AA&O, in NAD, calm and cooperative during exam HENT: Nontraumatic, no gross deformity, hearing and vision grossly in-tact, PERRL Heart: +S1, +S2, RRR, no murmurs appreciated Lungs: CTABL, no wheezing appreciated Right Hip: Right hip exam reveals significant stiffness with range of motion limited from 5 degrees up to 95 degrees. External rotation is 45 degrees and internal rotation is 0. She has positive impingement-scour tests. Positive Stinchfield test. Positive LISET test. No tenderness over the greater trochanter or sacroiliac joint. She does have some lower lumbar and sacral tenderness to palpation. Neurovascular intact. Principal Diagnosis Right hip osteoarthritis Discharge Exam Right hip: Outer dressing was removed. Silverlon is intact, clean and dry. Was a small area that healed up slightly so I reinforced it with a Tegaderm. Patient is able to perform an active straight leg raise test. She is able to actively dorsi and plantarflex her foot. She tolerates logroll testing. I passive hip flexion to 80 degrees causes no pain. She has no pain with light passive external rotation. She does experience a twinge of pain with very light passive internal rotation. Quad strength is 3 out of 5. Patient is neurovascularly intact in right lower extremity. Discharge Data Allergies Allergy/AdvReac Type Severity Reaction Status Date / Time aspirin Allergy Intermediate Hives Verified 07/19/22 08:12 NSAIDS (Non-Steroidal Allergy Intermediate Hives Verified 07/19/22 08:12 Anti-Inflamma Sulfa (Sulfonamide Allergy Intermediate Rash / Verified 07/19/22 08:12 Antibiotics) Headache sulfasalazine Allergy Unknown Headache Verified 07/19/22 08:12 celecoxib AdvReac Mild Headache Verified 07/19/22 08:12 Consultations 07/18/22 09:31 Consult Hospitalist Routine Procedures Performed Operation Date: 07/19/22 09:10 Actual Procedures p Right Total Hip Arthroplasty(Right) - Alcon Singh MD Hospital Course (1) Status post total hip replacement, right: Patient essentially had an unremarkable overnight stay following right total hip arthroplasty. Her blood sugar levels were elevated that required infusion of insulin x2. She states that her blood sugar and controlled with diet and exercise prior to surgery. I recommended that she follow-up with her primary care provider to discuss starting some sort of oral regimen, even though her hemoglobin A1c appears to be within normal limits. Patient is very pleased with the results of her surgery. She states that her pain level was much less than it has been pretty surgically. She is planning on going home later today with in-home physical therapy for the first 2 weeks. States that she has questions or concerns that should arise prior to her 2-week follow-up in our clinic, she will contact us. Total hip precautions reviewed PT/OT DVT prophylaxis with Xarelto and SAHE stockings Pain control with p.o. medication Ice with easy wrap Abduction pillow use x6 weeks postoperatively Plan is to discharge later today with in-home physical therapy for the first [address] Follow-up with [facility] orth[facility]ics as previously scheduled With questions contact our clinic at [phone] Total Time Total Time Spent Total Time Spent (In Minutes): 20 minutes Discharge Plan Discharge Items Patient Disposition: Home - Home Health Services Reason For Visit: Unilateral Primary Osteoarthritis, Right Hip Discharge Diagnosis: Right hip osteoarthritis Activity: As commented below Lifting: None Bathing: Keep incision dry Bathing Comment: May shower tomorrow Sexual Activity: Wait until after follow-up appointment Exercise/Sports: Wait until after follow-up appointment Driving/Machine Use: No driving until cleared by documentation improvement specialist Weightbearing: Right weightbearing Weightbearing Comment: As tolerated with walker assistance Non-emergency contact: Surgeon Call non-emergency contact if: you have any medication questions, your pain is not controlled, your temperature is above 101.5, your wound has increased drainage and your wound pain has increased Follow-up/Referrals: Mena Chairez DO [Primary Care Provider] - Diet: Carb Consistent or DM2 Addtl Attending Provider Instructions: Post-operative Instructions Dear Patient and Family/Friends, Before you are discharged from the hospital, it is important to know what to expect when you get home after surgery. To that end, we have created this sheet of discharge instructions which covers many commonly asked questions. Make sure you go through this sheet in its entirety with your nurse before you are discharged. Please note that we will go over the specifics of your surgery and recovery when you return for your first post-operative visit. Sincerely, Dr. Singh Medications 1. Xarelto 10 mg: Take 1 tablet daily for the first 30 days postoperatively for blood clot prevention. A prescription will be sent to your pharmacy. 2. Oxycodone 5 mg: Take 1-2 tabs every 4-6 hours as needed for pain control. A prescription will be sent to your pharmacy. 3. Extra strength Tylenol 500 mg: Take 2 tabs every 6-8 hours as needed for additional pain relief. Please purchase this medication. Pain Expect to be in a fair amount of pain after surgery. Remember, our goal is not to eliminate your pain, but to make it tolerable. It is a good idea to stay ahead of your pain by taking the medications you were prescribed once you get home. Typically, the pain starts improving 3-7 days after surgery. You should start weaning off the narcotic pain medication (oxycodone, hydrocodone, hydromorphone, morphine) as soon as your pain improves. Please call our office if your pain is not adequately controlled. Ice Ice your operative site at least 5 times a day for 15-30 minutes at a time. Make sure you have a thin cloth between the ice or cooling unit and your skin to prevent boyd bite. This is especially important if you received a nerve block. Continue icing your operative site for the first 5-7 days after surgery, then as needed. Diet/Nausea/Vomiting Start by drinking clear liquids and eating crackers. If you can tolerate this, then you may resume your normal diet. If you feel nauseated or vomit, take Zofran/ondansetron (if prescribed). Please call our office if you have intractable nausea or vomiting, or, if after hours, you may go to the Emergency Room for help. Constipation Constipation is a common side effect of narcotic pain medication. If you have not had a bowel movement within 2 days after surgery, we recommend purchasing an over the counter laxative such as Milk of Magnesia, Dulcolax, or Miralax from a local pharmacy, and taking it as instructed. Call our clinic if any questions. Nerve block The anesthesia team sometimes places a nerve block to help with post-operative pain control. This results in significant numbness and inability to move the extremity. The nerve block usually wears off in 8-12 hours, but sometimes can last up to 24 hours. Please call our office if you are still unable to move your extremity after 24 hours, unless you received a pain pump to take home. Nerve blocks typically wear off quickly, so start taking pain medication as soon as you start feeling soreness near your surgical site. Weight bearing and Range of Motion. Do not bear any weight through your operative extremity immediately after surgery. If you had upper extremity surgery, do not lift anything with that arm. If you are in a knee brace, keep it locked in place until your follow-up. We will discuss your weight bearing, range of motion, and lifting restrictions in detail at your first post-operative appointment. Continuous Passive Motion (CPM) Machine If you were prescribed a CPM machine, it will start after your first post- operative appointment, at which time we will give you instructions on the range of motion settings and duration of treatment Physical therapy You will be given a prescription for physical therapy or occupational therapy at your first post-operative appointment. Typically, patients start therapy within 1 week of surgery Wound care and showering We will inspect your wound at your first post-operative visit, and may do a dressing change at that time. Most patients will be in a water-proof dressing that is removed 14 days after surgery. It is normal to see some dried blood on the dressing. Do not remove your dressing, paper strips or sutures yourself unless you are given permission. Showering is allowed the day after surgery. Do not scrub or remove any dressings. The wound should not be submerged underwater (i.e. in a bathtub or pool) until 4 weeks after surgery SHAE stockings If you were given white stockings, these are to be worn at all times except to shower (on both legs) for the first 2 weeks after surgery. Driving You may not drive while taking narcotic pain medication or while in a cast, splint, sling or brace. You, the patient, need to make the final determination about when you are safe to drive, however, the earliest you may consider driving after surgery is below: Hand/Wrist/Elbow Surgery: 3 days Shoulder Surgery: 2 weeks Hip,/Knee/Ankle Surgery: 4 weeks Fracture repair: 6 weeks Return to Work Your return to work depends on what surgery was done and what type of work you do. Please bring any paperwork your employer needs completed to your first post-operative visit. Also, bring a description of your job duties, as this helps us to understand what risks you may face at work. Travel Avoid long distance travel (greater than 1 hour) in airplanes and cars for the first 6 weeks after surgery. If you must travel, you need to have a Doppler ultrasound done before you travel to rule out a blood clot in your legs. Follow-up You should have a follow-up appointment already scheduled 1-2 days after surgery. If not, please contact our office to make this appointment before you leave the hospital. When to call the office It is normal to have swelling and bruising in the limb that was operated on. This will improve with time. It is also normal to have fevers for the first 2 days after surgery. Reasons you should call your doctor include: Uncontrolled pain; Nausea, vomiting, or constipation that does not improve with medication; Fevers over 101.5, chills, sweats; Drainage or bleeding from the wound; Foul odor; Spreading areas of redness; Any other concerns Pending Studies at Discharge: No Stand-Alone Forms: My [facility] Medications and DC Order Prescriptions: New acetaminophen [Tylenol Extra Strength] 500 mg Tablet 1,000 mg PO Q8H 30 Days Qty: 180 0RF oxycodone 5 mg Tablet 5 - 10 mg PO Q4H PRN (Reason: pain) Qty: 28 0RF Xarelto 10 mg Tablet 10 mg PO DAILY 30 Days Qty: 30 0RF Continued losartan 50 mg tablet 50 mg PO QDL levothyroxine 137 mcg tablet 137 mcg PO QAM carvedilol 6.25 mg tablet 6.25 mg PO BID methotrexate sodium 2.5 mg tablet 15 mg PO WK Rx Instructions: takes q fri folic acid 1 mg tablet 1 mg PO QDL ergocalciferol (vitamin D2) 1,250 mcg (50,000 unit) capsule 50,000 unit PO MONTHLY Cosentyx Pen 150 mg/mL pen injector 300 mg SUBCUT Q4WK amlodipine 5 mg tablet 10 mg PO HS rosuvastatin 5 mg Tablet 5 mg PO HS duloxetine [Cymbalta] 30 mg Capsule,Delayed Release(Dr/Ec) 30 mg PO QAM Discharge Orders: Discharge Order (Routine); Ordered 07/20/22 Ordered By: Johnnie Arciniega Admission Data Admit Date/Time: 07/19/22 11:46 Attending Provider: Alcon Singh Admit Provider: Alcon Singh Primary Care Provider: Mena Chairez Other Providers: Buster Zhang Jonathan M.
[2022-07-20 10:47] VITALS: TEMP 98.4; O2SAT 97
--- NOTE | 2022-07-20 11:03 | Hospitalist Progress Note ---
Date of Service July 20, 2022 Assessment & Plan (1) Status post total right knee replacement: Plan: Pain and VTE management per orthopedic surgery. Pharmacy consult for elevated glucose secondary to surgery and steroid use but does not need diabetic medications on discharge. Patient stable for discharge from medical stand point. We will sign off at this time. (2) Ankylosing spondylitis: Plan: Continue her usual methotrexate weekly with daily folic acid Continue Cymbalta for pain (3) Antiphospholipid antibody positive: Plan: Increased risk of venous thromboembolism. On Xarelto per orthopedic surgery. (4) Hypertension: Plan: Continue amlodipine, carvedilol and losartan with hold parameters - BP stable restarted on amlodipine and carvedilol last night, losartan today. (5) Hypothyroidism: Plan: TSH 2.989 in January Continue levothyroxine 137mcg PO daily (6) Hyperlipidemia: Plan: Continue rosuvastatin 5mg PO HS Plan VTE Prophylaxis - Xarelto per surgery management Diet - heart healthy Disposition - no acute medical needs, disposition per orthopedic surgery Admission and Anticipated Discharge Date Admission Date: July 19, 2022 Subjective POD #1. Patient doing well. Nausea and dizziness resolved. Vital signs stable. Orthopedics planning on discharging later today. HbA1C 5.8 - does not need diabetic treatment on discharge. Post operative labs reviewed - mild anemia expected, otherwise unremarkable. Reviewed Xarelto bleeding precautions with patient. Review of Systems Review of Systems: All systems reviewed & are unremarkable except as noted in HPI & below Physical Exam Constitutional: WD/WN, vitals as above Eyes: + anicteric sclerae; normal pupil size ENMT: Mouth: oral mucous membranes not dry Respiratory: normal respiratory effort, lungs clear to auscultation Cardiovascular: Rate/Rhythm: regular rate and regular rhythm Heart Sounds: + murmur (systolic loudest in RUSB (known tricuspid regug)) Extremities: normal capillary refill; no calf tenderness and no pedal edema Gastrointestinal (Abdomen): normal bowel sounds, soft, nontender, no hepatosplenomegaly Musculoskeletal: no cyanosis or clubbing, extremities motor strength 5/5 Skin: no rashes, warm and dry Neurologic: moves all extremities and awake; not confused Psychiatric: A+Ox3, euthymic affect Results & Data Results & Data ([facility]) Vital Signs (Past 12 Hours) Vital Signs Temp Pulse Resp BP Pulse Ox O2 Del Method 07/20/22 10:46 36.9 C 53 L 16 119/75 97 Room Air 07/20/22 07:11 36.7 C 61 16 115/70 95 Room Air 07/20/22 03:11 36.7 C 52 L 18 120/77 95 Room Air 07/19/22 23:51 36.6 C 58 L 16 127/75 98 Room Air PG Care Time/CCT Total # of Minutes Spent Total Time Spent with Patient: Total time spent is greater than 50% in coordination of care (as documented) at patient's floor/unit and/or counseling patient: Coding Level of Care Code 70914 Subseq Obs Care Lvl 1 Diagnoses Status post total right knee replacement Z96.651 Ankylosing spondylitis M45.9 Antiphospholipid antibody positive R76.0 Hypertension I10 Hypothyroidism E03.9 Hyperlipidemia E78.5
[2022-07-20] MEDS ORDERED: LOSARTAN POTASSIUM 50 MG TAB PO SCH (11:30)
[2022-07-20] MEDS ORDERED: FOLIC ACID 1 MG TAB PO SCH (11:30)
[2022-07-20] MEDS: oxyCODONE HCL IR 5 MG TAB (IMMEDIATE RELEASE) PO PRN (12:28)
[2022-07-20 12:30] VITALS: BP 144/81; PULSE 64
== END 2022-07-20 14:14 | disposition home health service (06) ==
LOC: ASU 07:46 → 3E 07:46
DX: Z79.899 Other long term (current) drug therapy; Z79.890 Hormone replacement therapy; M16.11 Unilateral primary osteoarthritis, right hip; Z88.6 Allergy status to analgesic agent; M45.9 Ankylosing spondylitis of unspecified sites in spine; E78.5 Hyperlipidemia, unspecified; Z88.2 Allergy status to sulfonamides; R76.0 Raised antibody titer; E03.9 Hypothyroidism, unspecified; I10 Essential (primary) hypertension